=== PATIENT | male | born 1950 | race Caucasian/White ===

== ENCOUNTER → 2016-12-12 | Outpatient (CLI) | payer OTHER, BC ==
--- NOTE | 2016-12-12 13:55 | CPEKG ---
Heart Rate: 65 RR Interval: 923 P-R Interval: 148 QRSD Interval: 66 QT Interval: 388 QTC Interval: 404 P [place]: 77 QRS [place]: 48 T Wave [place]: 39 EKG Severity - NORMAL ECG - EKG Impression: SINUS RHYTHM EKG Impression: Poor R wave progression anteriorly, possible old anterior LA. Electronically Signed By: Zhen Costello 12-Dec-2016 16:59:34
== END ==
LOC: FCP 13:37
PROVIDERS: ATTEND Anesthesiology
DX: G35 Multiple sclerosis (principal)

== ENCOUNTER 2017-05-05 10:04 | Inpatient (IN) | payer OTHER, MEDICARE ==
--- NOTE | 2017-05-05 10:30 | EDPHY ---
H & P Stated Complaint: AMS Time Seen by Provider: 05/05/17 10:05 HPI/ROS: CHIEF COMPLAINT: Altered mental status HISTORY OF PRESENT ILLNESS: The patient presents to the ED with altered mental status. The patient has a history of multiple sclerosis. She has a history of multiple admissions this year for encephalopathy secondary to over-sedation and unintentional opioid overdose. The patient does report that she has been using these medications as well as trazodone and baclofen. At the patient's assisted living facility she reportedly was apneic and unresponsive. Paramedics gave the patient 2 mg of Narcan which resulted in immediate change in her mental status. Since that time she has been alert and conversant. The patient denies fever, cough or congestion. The patient denies dysuria. REVIEW OF SYSTEMS: A comprehensive 10 point review of systems is otherwise negative aside from elements mentioned in the history of present illness. Source: Patient, EMS - Personal History Current Tetanus/Diphtheria Vaccine: Unsure - Medical/Surgical History Hx Asthma: No Hx Chronic Respiratory Disease: No Hx Diabetes: No Hx Cardiac Disease: No Hx Renal Disease: No Hx Cirrhosis: No Hx Alcoholism: No Hx HIV/AIDS: No Hx Splenectomy or Spleen Trauma: No Other PMH: PMH: manic episodes, MS - Social History Smoking Status: Former smoker - Physical Exam Exam: General Appearance: Alert, no distress Eyes: Pupils equal and round no pallor or injection ENT, Mouth: Mucous membranes moist Respiratory: There are no retractions, lungs are clear to auscultation Cardiovascular: Regular rate and rhythm Gastrointestinal: Abdomen is soft and nontender, no masses, bowel sounds normal Neurological: Alert and oriented x4, somnolent, global weakness consistent with likely recurrent encephalopathy and her multiple sclerosis Skin: Warm and dry, no rashes Musculoskeletal: Neck is supple nontender Extremities: symmetrical, full range of motion Psychiatric: Patient is oriented X 3, there is no agitation Constitutional: Initial Vital Signs Temperature (C) 35.0 C L 05/05/17 10:09 Heart Rate 96 05/05/17 10:09 Respiratory Rate 16 05/05/17 10:09 Blood Pressure 119/97 H 05/05/17 10:09 O2 Sat (%) 97 05/05/17 10:09 O2 Delivery Mode Nasal Cannula O2 (L/minute) 2 Allergies/Adverse Reactions: No Known Allergies Allergy (Verified 03/14/17 01:57) Home Medications: Medication Instructions Recorded Baclofen [Baclofen 20 mg (*)] 40 mg PO 5XD 01/10/17 Acetaminophen [Tylenol 325mg (*)] 650 mg PO Q4HRS PRN #90 tab 03/17/17 Divalproex ER [Depakote ER 250 MG 250 mg PO BID #60 tab 03/17/17 (*)] Docusate Sodium [Colace 100 MG (*)] 100 mg PO BID #60 cap 03/17/17 Gabapentin [Neurontin 400 MG (*)] 400 mg PO TID 05/05/17 Tizanidine HCl [Zanaflex] 8 mg PO HS 05/05/17 clonAZEPAM [Klonopin] 0.5 mg PO HS PRN 05/05/17 oxyCODONE CR [Oxycontin] 15 mg PO TID 05/05/17 traZODone [traZODONE 100MG (*)] 300 mg PO HS PRN 05/05/17 Medical Decision Making ED Course/Re-evaluation: I reviewed the patient's past medical records. The patient has no evidence of significant respiratory distress. She has been placed on a engine monitor and given supplemental oxygen. The patient presents to the ED after a likely narcotic overdose which was responsive to IV Narcan given by the paramedics. The patient denies any suicidal or homicidal ideation. She does have a history of medication misadventure resulting in several hospitalizations for altered mental status. The patient is observed in the emergency department. We did have case management involved in her care. She is apparently unable to be transfer back to her assisted living facility secondary to her current level of acuity. The patient will require admission to the hospital. Consultation was made with the hospitalist service for admission. The patient will be admitted by Dr. Brad Pang. Differential Diagnosis: Differential diagnosis considered includes medication side effect, urinary tract infection, sepsis, metabolic abnormality - Data Points Laboratory Results: Laboratory Results 05/05/17 10:35 05/05/17 10:35 05/05/17 05/05/17 05/05/17 11:20 10:35 10:35 WBC 4.05 10^3/uL 10^3/uL (3.80-9.50) RBC 4.44 10^6/uL 10^6/uL (4.18-5.33) Hgb 13.1 g/dL g/dL (12.6-16.3) Hct 41.2 % % (38.0-47.0) MCV 92.8 fL fL (81.5-99.8) MCH 29.5 pg pg (27.9-34.1) MCHC 31.8 g/dL L g/dL (32.4-36.7) RDW 17.1 % H % (11.5-15.2) Plt Count 216 10^3/uL 10^3/uL (150-400) MPV 11.7 fL fL (8.7-11.7) Neut % (Auto) 63.7 % % (39.3-74.2) Lymph % (Auto) 16.8 % % (15.0-45.0) [place] % (Auto) 16.3 % H % (4.5-13.0) Eos % (Auto) 2.5 % % (0.6-7.6) Baso % (Auto) 0.2 % L % (0.3-1.7) Nucleat RBC Rel Count 0.0 % % (0.0-0.2) Absolute Neuts (auto) 2.58 10^3/uL 10^3/uL (1.70-6.50) Absolute Lymphs (auto) 0.68 10^3/uL L 10^3/uL (1.00-3.00) Absolute Monos (auto) 0.66 10^3/uL 10^3/uL (0.30-0.80) Absolute Eos (auto) 0.10 10^3/uL 10^3/uL (0.03-0.40) Absolute Basos (auto) 0.01 10^3/uL L 10^3/uL (0.02-0.10) Absolute Nucleated RBC 0.00 10^3/uL 10^3/uL (0-0.01) Immature Gran % 0.5 % % (0.0-1.1) Immature Gran # 0.02 10^3/uL 10^3/uL (0.00-0.10) Sodium 143 mEq/L mEq/L (134-144) Potassium 4.4 mEq/L mEq/L (3.5-5.2) Chloride 103 mEq/L mEq/L (97-110) Carbon Dioxide 28 mEq/l mEq/l (22-31) Anion Gap 12 mEq/L mEq/L (8-16) BUN 20 mg/dL mg/dL (7-23) Creatinine 0.6 mg/dL mg/dL (0.6-1.0) Estimated GFR > 60 Glucose 91 mg/dL mg/dL (70-100) Calcium 9.9 mg/dL mg/dL (8.5-10.4) Urine Color YELLOW Urine Appearance HAZY Urine pH 5.0 (5.0-7.5) Ur Specific [place] 1.027 (1.002-1.030) Urine Protein NEGATIVE (NEGATIVE) Urine Ketones 1+ H (NEGATIVE) Urine Blood NEGATIVE (NEGATIVE) Urine Nitrate NEGATIVE (NEGATIVE) Urine Bilirubin NEGATIVE (NEGATIVE) Urine Urobilinogen NEGATIVE EU EU (0.2-1.0) Ur Leukocyte Esterase 1+ H (NEGATIVE) Urine RBC 1-3 /hpf /hpf (0-3) Urine WBC 15-25 /hpf H /hpf (0-3) Ur Epithelial Cells TRACE /lpf /lpf (NONE-1+) Urine Bacteria TRACE /hpf H /hpf (NONE SEEN) Hyaline Casts 5-15 /lpf /lpf (0-1) Urine Mucus 1+ /lpf /lpf (NONE-1+) Urine Glucose NEGATIVE (NEGATIVE) Medications Given: Discontinued Medications Sodium Chloride (Ns) 1,000 mls @ 0 mls/hr IV ONCE ONE PRN Reason: Wide Open Stop: 05/05/17 11:02 Last Admin: 05/05/17 11:12 Dose: 1,000 mls Departure - Departure Disposition: [facility] Inpatient Acute Clinical Impression: Altered mental status, Weakness, Multiple sclerosis Condition: Fair Referrals: Syd Marquez MD [Primary Care Provider] - As per Instructions
[2017-05-05 10:54] LABS: % IMMATURE GRANULYOCYTES 0.5 % (0.0-1.1); ABSOLUTE IMMATURE GRANULOCYTES 0.02 10^3/uL (0.00-0.10); ADD DIFF? NO; ADD MORPH? NO; ADD SCAN? NO; ATYPICAL LYMPHOCYTE FLAG 0 (0-99); FRAGMENT RBC FLAG 0 (0-99); HEMATOCRIT 41.2 % (38.0-47.0); HEMOGLOBIN 13.1 g/dL (12.6-16.3); LEFT SHIFT FLG 0 (0-99); LIPEMIA HEMOLYSIS FLAG 80 (0-99); MEAN CELL HEMOGLOBIN 29.5 pg (27.9-34.1); MEAN CELL HEMOGLOBIN CONCENTR. 31.8 g/dL (32.4-36.7); MEAN CELL VOLUME 92.8 fL (81.5-99.8); MEAN PLATELET VOLUME 11.7 fL (8.7-11.7); PLATELET CLUMPS FLAG 10 (0-99); PLATELET COUNT 216 10^3/uL (150-400); RED BLOOD CELL COUNT 4.44 10^6/uL (4.18-5.33); RED CELL DISTRIBUTION WIDTH 17.1 % (11.5-15.2)
[2017-05-05] MEDS ORDERED: NS 1,000 ML IV ONE (11:01)
[2017-05-05 11:15] LABS: ANION GAP 12 mEq/L (8-16); CALCIUM 9.9 mg/dL (8.5-10.4); CARBON DIOXIDE 28 mEq/l (22-31); CHLORIDE 103 mEq/L (97-110); CREATININE 0.6 mg/dL (0.6-1.0); GLOMERULAR FILTRATION RATE > 60; GLUCOSE 91 mg/dL (70-100); POTASSIUM 4.4 mEq/L (3.5-5.2); SODIUM 143 mEq/L (134-144)
[2017-05-05 11:44] LABS: COLOR YELLOW; LEUKOCYTE ESTERASE,URINE 1+ (NEGATIVE); NITRITE,URINE NEGATIVE (NEGATIVE)
[2017-05-05 11:55] LABS: BACTERIA TRACE /hpf (NONE SEEN); MUCUS 1+ /lpf (NONE-1+); WBC,URINE 15-25 /hpf (0-3)
[2017-05-05] MEDS ORDERED: ACETAMINOPHEN 325 MG TAB PO PRN (13:51)
[2017-05-05] MEDS ORDERED: ONDANSETRON 4 MG/2 ML VIAL IVP PRN (13:57)
[2017-05-05 14:20] LABS: ALBUMIN 3.9 g/dL (3.5-5.0); BILIRUBIN,TOTAL 0.7 mg/dL (0.1-1.4); BILIRUBIN-CONJUGATED 0.5 mg/dL (0.0-0.5); BILIRUBIN-UNCONJUGATED 0.2 mg/dL (0.0-1.1); TOTAL PROTEIN 6.6 g/dL (6.3-8.2)
--- NOTE | 2017-05-05 14:38 | GHP ---
[f rep st] HISTORY AND PHYSICAL DATE OF ADMISSION: 05/05/2017 CHIEF COMPLAINT: Altered mental status. HISTORY OF PRESENT ILLNESS: This is a 66-year-old female with a history of multiple sclerosis who r esides at the [facility] who presented to the emergency department today with altered mental status. Upon review of the medical record, it appears that she was admitted for the same complaint on March 14 of this year and ultimately discharged on 03/17/2017 with a diagnosis of acute encephalopathy t hat was thought to be secondary to over sedation from unintentional opioid overdose. During the time of my exam, the patient is confused, making a very unreliable historian. The histor y was obtained via discussions with case preparer and liner, Ly, in the Emergency Department, as well as re view of the emergency department notes. Apparently, the patient does not have access to her home me dications. Her life partner dispenses her meds on a daily basis. Reportedly she was recently treat ed for a urinary tract infection. Over the past few days, she has had increasing confusion and amanda tion. She has not been taking her medications due to somnolence since yesterday. When EMS arrived at her home, she was found to be apneic and unresponsive. She was given 2 mg of Na rcan which improved her mental status. The patient denies overdosing on her medications when I ask her. Once again she seems unreliable. PAST MEDICAL HISTORY: 1. Multiple sclerosis. 2. Chronic pain. 3. Previous medication overdose. PAST SURGICAL HISTORY: Unobtainable. HOME MEDICATIONS: Acetaminophen, baclofen, Colace, OxyContin, trazodone. ALLERGIES: No known drug allergies. SOCIAL HISTORY: The patient resides at [facility]. The patient is a former smoker. FAMILY HISTORY: Unobtainable. REVIEW OF SYSTEMS: Comprehensive 10-point review of systems was attempted but unobtainable due to t he patient's altered mental status. PHYSICAL EXAMINATION: VITAL SIGNS: Blood pressure 117/72, pulse of 82, respiratory rate 16, O2 sat uration 96% on 2 L. Temperature afebrile. GENERAL: Chronically ill-appearing, lethargic. HEAD: Normocephalic, atraumatic. Eyes are PERRLA. Sclerae anicteric. MOUTH: Moist mucous membranes. N ELIZABETH: Supple. No lymphadenopathy. CARDIOVASCULAR: S1, S2. No JVD. No lower extremity edema. PU LMONARY: Lungs are clear. No wheezes, rales, or rhonchi. ABDOMEN: Soft, nontender, and nondisten ded. No guarding or rebound tenderness. Normoactive bowel sounds. EXTREMITIES: No clubbing or cy anosis. NEURO: Cranial nerves 2-12 appear to be intact. She is moving all extremities but does no t really follow commands. SKIN: Clear. No rashes. DIAGNOSTICS: WBC is 4, hemoglobin 13, hematocrit 41, platelets 216; sodium 143, potassium 4.4, chlo ride 103, CO2 28, BUN 20, creatinine 0.6, glucose 91. Urine is 1+ ketones, 1+ leukocyte esterase, 1 5-25 WBCs. ASSESSMENT/PLAN: 1. This is a 66-year-old female with a history of multiple sclerosis and previous hospitalization f or suspected overdose presenting with somnolence and acute encephalopathy of unclear etiology. Diff erential diagnosis includes accidental overdose versus urinary tract infection versus worsening mult iple sclerosis versus failure to thrive and not eating. 2. Plan: The patient will be admitted to the hospital where I will ask her neurologist to see her. Will hold sedating medications and see if this helps clear her mentation. 3. Mild pyuria without fever or leukocytosis. 4. Plan: Will send a urine culture and start ceftriaxone for a possible urinary tract infection. DISPOSITION: At this juncture, the patient will be admitted to the hospital under inpatient status. It appears that she has not been doing well in her current living situation. She had recently bee n discharged from the longterm facility following her last hospitalization in March. The pat ient is at a high risk for venous thromboembolism and will start low molecular weight heparin for DV T prophylaxis. /[id number]/MODL
[2017-05-05] MEDS: GABAPENTIN 400 MG CAP PO SCH ×2 (15:31→21:43)
[2017-05-05] MEDS: BACLOFEN 20 MG TAB PO SCH ×2 (17:22→20:31)
[2017-05-05] MEDS: oxyCODONE CR 15 MG TAB PO SCH ×2 (17:22→20:31)
[2017-05-05] MEDS: DOCUSATE SODIUM 100 MG CAP PO SCH (20:31)
[2017-05-05] MEDS: DIVALPROEX ER 250 MG TAB PO SCH (20:31)
[2017-05-06] MEDS ORDERED: KETOROLAC 15 MG/1 ML SDV ONE (02:01)
[2017-05-06] MEDS: KETOROLAC 15 MG/1 ML SDV IVP SCH ×4 (02:04→20:34)
[2017-05-06 10:22] LABS: ANION GAP 2 mEq/L (8-16); CALCIUM 8.6 mg/dL (8.5-10.4); CARBON DIOXIDE 31 mEq/l (22-31); CHLORIDE 106 mEq/L (97-110); CREATININE 0.6 mg/dL (0.6-1.0); GLOMERULAR FILTRATION RATE > 60; GLUCOSE 75 mg/dL (70-100); POTASSIUM 4.6 mEq/L (3.5-5.2); SODIUM 139 mEq/L (134-144)
[2017-05-06] MEDS: DIVALPROEX ER 250 MG TAB PO SCH ×2 (11:28→20:21)
[2017-05-06] MEDS: ENOXAPARIN 40 MG/0.4 ML SYR SC SCH (11:28)
[2017-05-06] MEDS: DOCUSATE SODIUM 100 MG CAP PO SCH ×2 (11:28→20:34)
[2017-05-06] MEDS: BACLOFEN 20 MG TAB PO SCH ×5 (11:28→22:03)
[2017-05-06] MEDS: GABAPENTIN 400 MG CAP PO SCH ×3 (11:29→22:04)
[2017-05-06] MEDS: oxyCODONE CR 15 MG TAB PO SCH ×3 (11:29→22:04)
--- NOTE | 2017-05-06 11:54 | GCON ---
[f rep st] CONSULTATION The patient is here in the hospital for feelings of lightheadedness, lethargy, and dizziness and tra nsferred from the [facility] via ambulance yesterday afternoon. I have been consulted to see her rega rding the diagnosis of multiple sclerosis and whether acute symptoms might be related to that. The history is obtained from the patient directly. Current medical records are unavailable due to the s ystem down time. She tells me that she was diagnosed around 1987 when she had weakness and dizzines s and has been through the initial first-line multiple sclerosis drugs and eventually was on Tysabri and had been on methotrexate prior to that and more recently has completed treatment with Lemtrada. She is followed at the [facility] after moving here from the . area about 6 month s ago. She cannot recall the name of the fellow at the [facility] but is aware of the team of physicians there. She predominantly deals with chronic pain in the legs, and this is a res ult of spasticity. She is followed in the [facility] for the pain management for which she say s she takes OxyContin 15 mg 3 times a day. Her baclofen dosing is reportedly 40 mg 5 times a day. Because of her lethargy, Dr. Pang decreased those doses by 50% on the baclofen and by 1/3 on the Ox yContin until she became more alert and then have an opportunity to see if she would recover back to her baseline. She is complaining of having pain and wants more of her medication again. The relat juliet hypotension has resolved, and her lethargy is much better. She is probably getting toward her b aseline. She denies any other new symptoms such as focal numbness or weakness. REVIEW OF SYSTEMS: Unremarkable. FAMILY HISTORY: Unremarkable except for a distant relative with multiple sclerosis. 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 Her degree of disability has led to living in an [facility] living facility. She spends a fair amount of time in a wheelchair but can do some walking with hiking poles about 20 or 30 feet. She does not smoke cigarettes. Stopped consuming any significant alcohol 30 years ago or more. No drug abuse. She has completed treatment with Lemtrada for immuno suppression. She is interested in trying Ampyra but is not on that drug and has not had discussions yet with her doctors at [facility]. She is on the baclofen as outlined and OxyContin . She is well developed, lying in the bed in no acute distress. Pupils 3 mm and reactive. Extraocula r movements are intact. Normal facial sensation and strength. Motor exam reveals normal muscle bul k and tone. In the upper extremities, there is some increased tone. In the lower extremities, ther e is spasticity. All of her strength is in the 4/5 range or slightly less depending on effort and p roximal being weaker than distal. Sensation is relatively preserved. Reflexes are brisk in the low er extremities. IMPRESSION: The patient has chronic progressive multiple sclerosis and has failed many different im munomodulatory treatments and has completed treatment with Lemtrada and probably is not having a mul tiple sclerosis acute exacerbation at this time but probably overmedicated with side effects causing hypotension and lethargy. She unfortunately has chronic pain with spasticity and that requires pot entially sedating drugs with risk of excessive sedation and the complications of that. We will try to get her back on a dose that she can tolerate to maintain control of symptoms, but it will certain ly be a challenge to maintain that difficult balance. She asked if I could see her in [place] in e future, and I told her I would be happy to work with her and my physician orthodontic assistant if she would l manda to be seen here rather than traveling to [place] for her multiple sclerosis care. She understand s that we would not be involved in prescribing narcotics, but that would be done through a pain clin ic. We would need to have all the records sent from the [facility] if we do assume her care after discharge. She probably is not a candidate for inpatient rehab but can be assessed by ph ysical and occupational therapy. Today's total unit time greater than 50% [id number] was 60 minutes. Copy requested to: [facility] /[id number]/MODL
[2017-05-06] MEDS ORDERED: traZODone 100 MG TAB PO PRN (13:14)
[2017-05-06] MEDS ORDERED: NON-FORMULARY NEW DRUG (Clonazepam [Klonopin] 0.5 MG) PO PRN (13:14)
[2017-05-06 13:18] LABS: % IMMATURE GRANULYOCYTES 0.2 % (0.0-1.1); ABSOLUTE IMMATURE GRANULOCYTES 0.01 10^3/uL (0.00-0.10); ADD DIFF? NO; ADD MORPH? NO; ADD SCAN? NO; ATYPICAL LYMPHOCYTE FLAG 10 (0-99); FRAGMENT RBC FLAG 20 (0-99); HEMATOCRIT 35.1 % (38.0-47.0); HEMOGLOBIN 11.3 g/dL (12.6-16.3); LEFT SHIFT FLG 0 (0-99); LIPEMIA HEMOLYSIS FLAG 80 (0-99); MEAN CELL HEMOGLOBIN 30.1 pg (27.9-34.1); MEAN CELL HEMOGLOBIN CONCENTR. 32.2 g/dL (32.4-36.7); MEAN CELL VOLUME 93.4 fL (81.5-99.8); MEAN PLATELET VOLUME 11.5 fL (8.7-11.7); PLATELET CLUMPS FLAG 10 (0-99); PLATELET COUNT 214 10^3/uL (150-400); RED BLOOD CELL COUNT 3.76 10^6/uL (4.18-5.33); RED CELL DISTRIBUTION WIDTH 17.2 % (11.5-15.2)
[2017-05-06] MEDS ORDERED: clonazePAM 0.5 MG TAB PO PRN (13:22)
--- NOTE | 2017-05-06 13:22 | HOSPPROG ---
Hospitalist Progress Note Assessment/Plan: 66 y/o female with h/o progressive MS presenting with #acute encephalopathy (resolved) with h/o similar presentation back in 03/2017 though to be due to oversedation from medications -ddx: overmedication which the patient denies vs uti (urine culture negative to date) vs other plan: -neuro consult was reviewed and appreciated -will resume home dose of oxycontin/baclofen/trazodone and monitor effect -will cont to hold zanaflex -PT/OT eval -dc back to [facility] if stable or may need rehab #possible uti plan: -cont ctx for now pending culture #H/o chronic pain/opiate dependence plan: as per above dispo: continue inpatient care lovenox for dvt -p Subjective: reports severe total body pain. requesting that home dose of baclofen and oxycontin be resumed. denies fever or chills. no other acute complaints Objective: Vital Signs Temp Pulse Resp BP Pulse Ox 36.9 C 78 18 140/89 H 95 05/06/17 11:56 05/06/17 11:56 05/06/17 11:56 05/06/17 11:56 05/06/17 11:56 Laboratory Results 05/06/17 07:25 05/05/17 05/06/17 05/07/17 05:59 05:59 05:59 Intake Total 700 Output Total 1200 Balance -500 - Physical Exam Constitutional: no apparent distress, chronically ill appearing Cardiovascular: regular rate and rhythym, no murmur, rub, or gallop Respiratory: no respiratory distress, no rales or rhonchi, clear to auscultation Gastrointestinal: normoactive bowel sounds, soft, non-tender abdomen, no palpable masses, No guarding, No rebound Skin: no rashes or abrasions, no fluctuance, no induration ICD10 Worksheet Patient Problems: Problems Problem Status Onset Altered mental status Acute Weakness Acute Multiple sclerosis Acute Fall Acute
[2017-05-06] MEDS: traZODone 100 MG TAB PO SCH (22:04)
[2017-05-07] MEDS: KETOROLAC 15 MG/1 ML SDV IVP SCH ×4 (00:22→18:37)
[2017-05-07] MEDS: BACLOFEN 20 MG TAB PO SCH ×5 (05:47→21:26)
--- NOTE | 2017-05-07 09:24 | NEUROPROG ---
Assessment: Multiple sclerosis stable with mild worsening of symptoms likely related to meds or UTI or some combination. Pt feels she could not have overdosed on the meds, but just no sure. Agree with trying for inpatient rehab if a candidate. Total unit time 25 minutes. Subjective: Pt reports feeling back to her baseline except a little weakness in general. The lethargy has resolved. Objective: Vital Signs Temp Pulse Resp BP Pulse Ox 36.8 C 67 14 126/69 H 91 L 05/07/17 07:52 05/07/17 07:52 05/07/17 07:52 05/07/17 07:52 05/07/17 07:52 Laboratory Results 05/06/17 07:25 05/06/17 07:25 05/06/17 05/07/17 05/08/17 05:59 05:59 05:59 Intake Total 700 450 Output Total 1200 300 Balance -500 150 Stable Allergies/Adverse Reactions: No Known Allergies Allergy (Verified 03/14/17 01:57)
[2017-05-07] MEDS: GABAPENTIN 400 MG CAP PO SCH ×3 (10:10→21:26)
[2017-05-07] MEDS: oxyCODONE CR 15 MG TAB PO SCH ×3 (10:10→21:26)
[2017-05-07] MEDS: DIVALPROEX ER 250 MG TAB PO SCH ×2 (10:10→21:26)
[2017-05-07] MEDS: DOCUSATE SODIUM 100 MG CAP PO SCH ×2 (10:10→21:58)
[2017-05-07] MEDS: ENOXAPARIN 40 MG/0.4 ML SYR SC SCH (10:14)
[2017-05-07 11:12] VITALS: RESP 16
[2017-05-07] MEDS ORDERED: POLYETHYLENE GLYCOL 3350 17 GM PKT PO PRN (13:12)
[2017-05-07] MEDS ORDERED: BISACODYL 10 MG SUPP PR PRN (13:12)
[2017-05-07] MEDS ORDERED: MAGNESIUM HYDROXIDE 30 ML UDCUP PO PRN (13:12)
[2017-05-07] MEDS ORDERED: LIDOCAINE 5% 1 EA PATCH TD SCH ×2 (14:00→21:00)
--- NOTE | 2017-05-07 14:54 | HOSPPROG ---
Hospitalist Progress Note Assessment/Plan: 66 y/o female with h/o progressive MS presenting with weakness. This is my first encounter, chart reviewed. #acute encephalopathy (resolved) with h/o similar presentation back in 03/2017 though could be due to oversedation from medications -ddx: overmedication which the patient denies vs uti (urine culture negative to date) vs other plan: -neuro consult was reviewed and appreciated -will resume home dose of oxycontin/baclofen/trazodone and monitor effect -will cont to hold zanaflex -PT/OT eval #MS: weakness consider inpt rehab consult ordered, D/W Summer #possible uti cx negative plan: DC CTX #Back pain add lidoderm patch #H/o chronic pain/opiate dependence plan: as per above dispo: continue inpatient care lovenox for dvt -p Subjective: Up in wheelchair. Feels weak. Eating breakfast. Objective: Vital Signs Temp Pulse Resp BP Pulse Ox 36.4 C 86 16 121/98 H 94 05/07/17 11:10 05/07/17 11:10 05/07/17 11:10 05/07/17 11:10 05/07/17 11:10 Laboratory Results 05/06/17 07:25 05/06/17 07:25 05/06/17 05/07/17 05/08/17 05:59 05:59 05:59 Intake Total 700 450 Output Total 1200 300 Balance -500 150 - Physical Exam Constitutional: appears nourished, chronically ill appearing, uncomfortable Eyes: PERRL, anicteric sclera, EOMI Ears, Nose, Mouth, Throat: moist mucous membranes, hearing normal, ears appear normal Cardiovascular: No JVD, No tachycardia, No edema Respiratory: no respiratory distress, no rales or rhonchi, reduced air movement Gastrointestinal: No tenderness, No ascites, No guarding Skin: warm, normal color, No erythema Musculoskeletal: no joint effusions, muscular tenderness, generalized weakness Neurologic: AAOx3 Psychiatric: not anxious, not encephalopathic, thought process linear ICD10 Worksheet Patient Problems: Problems Problem Status Onset Altered mental status Acute Weakness Acute Multiple sclerosis Acute Fall Acute
[2017-05-07] MEDS: traZODone 100 MG TAB PO SCH (21:25)
[2017-05-07] MEDS: SENNOSIDES/DOCUSATE SODIUM TAB PO SCH (21:26)
[2017-05-08] MEDS: KETOROLAC 15 MG/1 ML SDV IVP SCH ×3 (00:03→11:31)
[2017-05-08] MEDS: BACLOFEN 20 MG TAB PO SCH ×3 (05:46→13:07)
[2017-05-08 08:59] VITALS: BP 99/54; PULSE 80; TEMP 98.5; O2SAT 94
[2017-05-08] MEDS ORDERED: PATCH REMOVAL 1 EA PATCH TD SCH (09:00)
[2017-05-08] MEDS: ENOXAPARIN 40 MG/0.4 ML SYR SC SCH (09:22)
[2017-05-08] MEDS: DOCUSATE SODIUM 100 MG CAP PO SCH (09:22)
[2017-05-08] MEDS: oxyCODONE CR 15 MG TAB PO SCH (09:22)
[2017-05-08] MEDS: GABAPENTIN 400 MG CAP PO SCH (09:22)
[2017-05-08] MEDS: SENNOSIDES/DOCUSATE SODIUM TAB PO SCH (09:23)
[2017-05-08] MEDS: DIVALPROEX ER 250 MG TAB PO SCH (09:24)
[2017-05-08] MEDS: LACTULOSE 20 GM/30 ML UDCUP PO PRN ×2 (09:42→13:07)
--- NOTE | 2017-05-08 12:13 | PDIAF ---
- Diagnosis Diagnosis: weakness Code Status: Full Code - Medication Management Discharge Medications: Medications to Continue on Transfer Baclofen [Baclofen 20 mg (*)] 40 mg PO 5XD 01/10/17 [Last Taken 03/13/17] Acetaminophen [Tylenol 325mg (*)] 650 mg PO Q4HRS PRN #90 tab 03/17/17 [Last Taken Unknown] Divalproex ER [Depakote ER 250 MG (*)] 250 mg PO BID #60 tab 03/17/17 [Last Taken Unknown] Docusate Sodium [Colace 100 MG (*)] 100 mg PO BID #60 cap 03/17/17 [Last Taken Unknown] Gabapentin [Neurontin 400 MG (*)] 400 mg PO TID 05/05/17 [Last Taken Unknown] Tizanidine HCl [Zanaflex] 8 mg PO HS 05/05/17 [Last Taken Unknown] clonAZEPAM [Klonopin] 0.5 mg PO HS PRN 05/05/17 [Last Taken Unknown] oxyCODONE CR [Oxycontin] 15 mg PO TID 05/05/17 [Last Taken Unknown] traZODone [traZODONE 100MG (*)] 100 mg PO HS PRN 05/05/17 [Last Taken Unknown] traZODone [traZODONE 100MG (*)] 200 mg PO HS 05/05/17 [Last Taken Unknown] Enoxaparin [Lovenox 40 MG (*)] 40 mg SC DAILY syr 05/08/17 [Last Taken Unknown] Lidocaine 5% [Lidoderm 5% Patch (*)] 1 ea TD HS patch 05/08/17 [Last Taken Unknown] Patch Removal 1 ea TD DAILY patch 05/08/17 [Last Taken Unknown] Polyethylene Glycol 3350 [Miralax 17 gm (*)] 17 gm PO DAILY PRN #0 pkt 05/08/17 [Last Taken Unknown] Sennosides/Docusate Sodium [Senokot-S] 1 - 2 tab PO BID tab 05/08/17 [Last Taken Unknown] Discharge Medications: Refer to the Discharge Home Medication list for PRN reason. PICC Care - Routine: N/A - Orders Services needed: Registered Nurse, Physical Therapy, Occupational Therapy Diet Recommendation: no restrictions on diet - Follow Up Care Current Providers and Referrals: Syd Marquez MD [Primary Care Provider] - As per Instructions
--- NOTE | 2017-05-08 15:06 | GDS ---
[f rep st] DISCHARGE SUMMARY DISCHARGE DIAGNOSES: 1. Weakness. 2. Acute encephalopathy. 3. Multiple sclerosis. 4. Pyuria. 5. Back pain. 6. Chronic pain with opioid dependency. CONSULTATIONS: Dr. Leon of Neurology. PHYSICAL EXAM: GENERAL: The patient is alert. VITAL SIGNS: Afebrile at 36.9, pulse is 80, respir atory rate 16, blood pressure is 99/54. She is saturating 94% on 2 liters. I have seen and evaluat ed the patient on the day of discharge. HOSPITAL COURSE: The patient is a 66-year-old female who presented to the hospital with complaints of altered mental status. She was evaluated and diagnosed with: 1. Acute encephalopathy. The etiology of this is potential over medication. Her medications have b een adjusted and her mentation has returned to baseline. She did receive a consultation from Michael wellington during this hospital course with no recommended further evaluation. 2. Multiple sclerosis. The patient is suffering from acute weakness. She will require rehabilitat ion. 3. Pyuria. Urine culture was negative. The patient was treated with Rocephin prophylactically whi paulette awaiting urine culture results. 4. Back pain with added Lidoderm patch. 5. Chronic pain with opioid dependency. She has been reinitiated on her previously prescribed medi cations and is tolerating them well. It is potential that the patient may have taken more medicatio ns than prescribed in the outpatient setting unintentionally causing her to have acute altered menta tion. DISPOSITION: The patient will be discharged to inpatient rehab for further strengthening and condit ioning. There are no pending studies. DISCHARGE MEDICATIONS: Please refer to EMR form. I have not adjusted the patient's previously pres cribed home medications to the best of my knowledge. FOLLOWUP: Followup will be with her primary care physician, Dr. Syd Marquez. I spent greater than 35 minutes in the care, coordination, and management of this patient's disposit ion and coordination with Case Management. /[id number]/MODL
== END 2017-05-08 14:33 | DRG 92 ==
LOC: EDUNIT# → OBSVTOIN 13:54 → F3N 14:04
PROVIDERS: ADMIT Family Medicine; ATTEND Family Medicine
DX: G92 Toxic encephalopathy (principal); T40.601A Poisoning by unspecified narcotics, accidental (unintentional), initial encounter; G35 Multiple sclerosis; G89.29 Other chronic pain; F11.20 Opioid dependence, uncomplicated; Z87.891 Personal history of nicotine dependence; Z87.440 Personal history of urinary (tract) infections
CPT/HCPCS: 97110-GO; 97116-GP; 97162-GP; 97166-GO; 97530-GO; 97535-GO; G8981-GP-CK; G8982-GP-CI; G8987-GO-CK; G8988-GO-CJ; J0696; J1650; J1885

== ENCOUNTER 2017-05-08 10:31 | Inpatient (IN) | payer OTHER, MEDICARE ==
--- NOTE | 2017-05-08 18:22 | GHP ---
[f rep st] HISTORY AND PHYSICAL POST ADMISSION PHYSICIAN EVALUATION AND REHABILITATION TREATMENT PLAN DATE OF ADMISSION: 05/08/2017 DATE OF EVALUATION: 05/08/2017 TIME OF EVALUATION: 1455. REFERRING FACILITY: [facility]. REFERRING PHYSICIAN: Brad Pang DO IMPAIRMENT GROUP: 16. DATE OF ONSET: 05/06/2017 REHABILITATION DIAGNOSIS: Weakness and debility. ETIOLOGIC DIAGNOSIS: Debility (non-cardiac, non-pulmonary) HISTORY OF PRESENT ILLNESS: This patient is a 66-year-old woman with a history of chronic progressive multiple sclerosis since 1987. She came to [facility] from her assisted living facility on 05/05/2017 with altered mental status. She reports that she had recently been treated for a urinary tract infection and had symptoms with dysuria and frequency, and that she had gotten weaker over a period of days. It was also thought possible that she was over-sedated from unintentional overdose of sedating medications. Her sedating medications were initially reduced, and she had some improvement. Her oxycodone, baclofen, and trazodone doses were initially reduced; subsequently, after neurologic consult, they were resumed at her home doses on 05/06/2017. She was treated with ceftriaxone for a possible resistant urinary tract infection. Urinalysis on the day of admission was consistent with urinary tract infection; however, culture grew no organisms, so antibiotics were discontinued. She was evaluated by physical therapy and occupational therapy and was appropriate for transfer to inpatient rehabilitation. STUDIES AND LABS IN THE HOSPITAL: CBC was overall within normal limits. She did get slight anemia during her stay, possibly due to hydration, and on May 06 her hemoglobin was 11.3 and hematocrit was 35.1. She had an elevated RDW. Serum chemistry revealed normal renal function, liver function, and electrolytes on 05/05 and 05/06. Urinalysis had 1+ ketones, 1+ leukocyte esterase,15-20white blood cells, and trace bacteria. It was somewhat concentrated with a specific gravity of 1.027. Toxicology screen in the serum revealed a valproic acid level of 31.6, which is subtherapeutic for seizures, but she takes it for mood stabilization. PRECAUTIONS: She is a fall risk. ACTIVE COMORBIDITIES: She has no active tier 1, tier 2, or tier 3 comorbidities. PAST MEDICAL HISTORY: 1. Multiple sclerosis. 2. Degenerative joint disease. 3. Chronic pain and chronic opiate use. 4. Prior inadvertent medication overdoses. ALLERGIES: No known drug allergies. PRE-HOSPITAL MEDICATIONS: 1. Baclofen 40 mg p.o. 5 times a day. 2. Acetaminophen 650 mg q.4 hours p.r.n. 3. Divalproex ER 250 mg p.o. twice daily. 4. Docusate 100 mg p.o. b.i.d. 5. Gabapentin 400 mg p.o. t.i.d. 6. Tizanidine 8 mg p.o. q.h.s. 7. Clonazepam 0.5 mg p.o. q.h.s. p.r.n. 8. Oxycodone continuous release 15 mg p.o. t.i.d. 9. Trazodone 200 mg q.h.s. and 100 mg q.h.s. p.r.n. 10. Polyethylene glycol 17 g p.o. daily. 11. Senna/docusate 1-2 tabs p.o. b.i.d. ADMISSION MEDICATIONS: The same as pre-hospital medications with the addition of lidocaine patch q.h.s. to her left buttock and enoxaparin 40 mg subcutaneous daily. FAMILY HISTORY: Noncontributory. PSYCHOSOCIAL HISTORY: She is a nonsmoker and nondrinker. She lives in assisted living facility. 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 She has a life partner who is also in [place] but does not live at the assisted living. REVIEW OF SYSTEMS: She reports knee pain and reports that she has an appointment on May 10 at 10 a.m. for an injection with orthopedist, , in the right knee. She has buttock/low back pain which is improved with the lidocaine patch which was initiated in the hospital. She has weakness and reports that her normal functional status includes independence with transfers and dressing and ability to prepare simple meals in her assisted living apartment. She needed assistance with bathing. She was able to ambulate short distances using trekking poles. She denies cough or dyspnea. She denies chest pain and palpitations. She has constipation, but this was relieved yesterday with laxatives. She denies nausea, vomiting, or diarrhea. She denies dysuria and urinary frequency at this time. She denies fevers or chills. On chart review, she has had weight gain of greater than 6 kg since March, and otherwise a 10-point review of systems is negative. PHYSICAL EXAMINATION: VITALS. This morning at [facility], blood pressure was 99/54, heart rate was 80, respiratory rate was 16, oxygen saturation was 94% on room air. Temperature was 36.9 degrees centigrade. Her weight was 59 kg for a body mass index of 22.3. GENERAL: This is a well- nourished, well-developed woman sitting in a wheelchair with a somewhat flexed posture, cooperative, and in no acute distress. HEENT: Extraocular movements are intact. Pupils are 3 mm, equal, round, and reactive to light. Mucous membranes are moist. Dentition is in good condition. NECK: Supple. HEART: Regular rate and rhythm with no murmurs, rubs, or gallops. LUNGS: Clear to auscultation bilaterally. ABDOMEN: Soft, nontender, and nondistended with normoactive bowel sounds and no hepatosplenomegaly. EXTREMITIES: No cyanosis, clubbing, or edema. Radial and dorsalis pedis pulses are 2+ bilaterally. NEUROLOGIC: Alert and oriented x3. Cranial nerves 2-12 are grossly intact. Her left upper extremity strength is 4/5 to 4+/5, including handgrip, biceps and triceps. Her shoulder shrug is 5/5. Her left lower extremity strength is 4 /5 at the hip flexors and 3/5 at the, hamstrings and approximately 4/5 at the quadriceps. Her strength on the right side is overall 4+/5. Sensation is intact to light touch. Deep tendon reflexes are 2+ bilaterally at the biceps, but hypoactive at the patella and Achilles tendons. Gait and stance were not tested. CURRENT LEVEL OF FUNCTION per the pre-admission screen. Regarding diet, feeding , and swallowing, she was on a regular diet. For grooming, she required set up. For bathing, she required minimal assistance. For showering and minimal assistance for transfer. For dressing of the upper body, she required maximal assistance, and lower body required total assistance to hike her pants. Regarding toileting, she required total assistance for clothing management. Regarding bladder, she was noted to have a Van catheter. Regarding bowels, she was continent. Regarding bed mobility, she required contact guard-to- minimal assistance. For transfers, she required minimal assistance using a front-wheeled walker for balance. She required minimal assistance for standing and [id number] assist in sitting. Endurance was fair. She was able to ambulate 15 feet x3 with minimal assist of 2. She required seated rests. She was noted to have increased tone in the left lower extremity and that the left lower extremity was weaker than the right. Regarding cognition, she was noted to have impaired insight, judgment, safety awareness, sequencing, and organization, and she was noted to fatigue easily. IMPRESSION: This patient is a 66-year-old woman who has had 3 hospitalizations in the past 4 months for episodes of weakness. The current hospitalization may have been related to a urinary tract infection. The other hospitalizations were due to unintentional overdoses of sedating medications. She has been returned to her home doses of her medications, including a very high baclofen dose, which is well above the recommended maximum dose. Other sedating medications are divalproex, gabapentin, tizanidine, clonazepam, oxycodone, and trazodone. She insists that she has not overdosed on these medications. In inpatient rehabilitation, she can be observed for her alertness while she is taking medications as prescribed, and will consider making adjustments. She arrives quite debilitated relative to her usual state at her assisted living, and will benefit from physical and occupational therapy to optimize mobility and activities of daily living, and speech and language pathology regarding cognition. She will have nursing care for fall risk, bowel and bladder, skin integrity, and medication administration. She will have oversight by a physician regarding her multiple medications and possible adverse effects or interactions, for pain management and for deep venous thrombosis prophylaxis. Her goal is to return to her assisted living with supportive services. For a safe discharge, she will need to have independence with bed mobility, transfers , grooming, and dressing; she will need to achieve modified independence for toileting; she will likely continue to require [id number] guard assist for bathing. She will need to ambulate 20-40 feet continuously with trekking poles, and she will need to be independent with transfers to and from and use of the wheelchair. She will receive therapy with physical therapy, occupational therapy, and speech and language pathology for 1 hour per day on 5-7 days per week. Her expected duration of stay is 7-10 days. It is anticipated that, upon discharge, she will continue to benefit from home health services, including occupational therapy, and physical therapy, as well as a multiple sclerosis support group. ASSESSMENT AND PLAN: 1. Debility in a patient with chronic progressive multiple sclerosis with proximal cause being either urinary tract infection or unintentional overdose on sedating medications. Physical and occupational therapy to optimize mobility and activities of daily living. 2. Cognitive impairment related to multiple sclerosis. Assessment and treatment per speech and language pathology. 3. Spasticity and chronic pain. Will continue baclofen, gabapentin, tizanidine , and the lidocaine patch. She will be observed for over-sedation and for adequacy of pain control. She has an appointment with orthopedic surgeon, for a right knee injection on May 10, which she very much wants to keep. Arrangements will be made for her to make this appointment. 4. History of nancy, for which she is treated with divalproex. She was not toxic on this medication, and it will be continued. Additionally, she has trazodone and clonazepam prescribed. Again, she will be observed for over- sedation, and medications may be adjusted. Consider assistance of psychiatry. 5. Recent urinary tract infection per her report with pyuria but a negative urine culture in the hospital. She will be observed for any return of symptoms. 6. Risk for deep venous deep venous thrombosis. She was discharged from the hospital on enoxaparin, and this will be continued until her mobility improves. 7. History of unintentional medication overdoses. She will have medication education. Her partner also will have medication education. Consider discharge with medication management per the assisted living. /[id number]/MODL MTDD
[2017-05-08] MEDS: BACLOFEN 20 MG TAB PO SCH ×2 (18:23→21:36)
[2017-05-08] MEDS: oxyCODONE CR 15 MG TAB PO SCH (21:36)
[2017-05-08] MEDS: traZODone 100 MG TAB PO SCH (21:36)
[2017-05-08] MEDS: GABAPENTIN 400 MG CAP PO SCH (21:37)
[2017-05-08] MEDS: DIVALPROEX ER 250 MG TAB PO SCH (21:37)
[2017-05-08] MEDS: LIDOCAINE 5% 1 EA PATCH TD SCH (21:38)
[2017-05-08] MEDS: DOCUSATE SODIUM 100 MG CAP PO SCH (22:03)
[2017-05-08] MEDS: SENNOSIDES/DOCUSATE SODIUM TAB PO SCH (22:04)
[2017-05-08] MEDS: TIZANIDINE HCL 8 MG PO SCH (22:12)
[2017-05-09] MEDS: traZODone 100 MG TAB PO PRN (00:05)
[2017-05-09] MEDS: IBUPROFEN 600 MG TAB PO PRN (00:54)
[2017-05-09] MEDS: BACLOFEN 20 MG TAB PO SCH ×5 (06:22→21:57)
[2017-05-09] MEDS ORDERED: PATCH REMOVAL 1 EA PATCH TD SCH (09:00)
[2017-05-09] MEDS: oxyCODONE CR 15 MG TAB PO SCH ×3 (09:49→21:58)
[2017-05-09] MEDS: SENNOSIDES/DOCUSATE SODIUM TAB PO SCH ×2 (09:50→22:11)
[2017-05-09] MEDS: DOCUSATE SODIUM 100 MG CAP PO SCH ×2 (09:51→21:58)
[2017-05-09] MEDS: ENOXAPARIN 40 MG/0.4 ML SYR SC SCH (09:51)
[2017-05-09] MEDS: GABAPENTIN 400 MG CAP PO SCH ×3 (09:52→21:58)
--- NOTE | 2017-05-09 10:59 | SOAPPROG ---
SOAP Progress Note Assessment/Plan: Assessment: 66 yo F with chronic progressive MS since 1987, hospitalized with weakness and AMS, 3rd time in 4 mo, due to UTI vs overuse of sedating medications: * Debility in a patient with chronic progressive multiple sclerosis. Physical and occupational therapy to optimize mobility and activities of daily living. * Cognitive impairment related to multiple sclerosis. Assessment and treatment per speech and language pathology. * Spasticity and chronic pain. Continue baclofen, gabapentin, tizanidine, and the lidocaine patch. Home medication doses were resumed in the hospital. Observe for over-sedation and for adequacy of pain control. * R knee DJD. She has an appointment with orthopedic surgeon, for a right knee injection on May 10, which she very much wants to keep. Arrangements will be made for her to make this appointment. * History of nancy, for which she is treated with divalproex. She was not toxic on this medication, and it will be continued. Additionally, she has trazodone and clonazepam prescribed. Again, she will be observed for over- sedation, and medications may be adjusted. Consider assistance of psychiatry. * Recent urinary tract infection per her report with pyuria but a negative urine culture in the hospital. She will be observed for any return of symptoms. * Risk for deep venous deep venous thrombosis. She was discharged from the hospital on enoxaparin, and this will be continued until her mobility improves. * History of unintentional medication overdoses. She will have medication education. Her partner also will have medication education. Consider discharge with medication management done by the assisted living. 05/09/17 12:36 Subjective: Says she stayed up late and was awakened early for therapy, so she feels tired today. O/W w/out complaint. No dysuria, f/c. 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 Objective: Vital Signs Temp Pulse Resp BP Pulse Ox 36.7 C 67 16 97/56 L 92 05/09/17 07:01 05/09/17 07:01 05/09/17 07:01 05/09/17 07:01 05/09/17 07:01 05/08/17 05/09/17 05/10/17 05:59 05:59 05:59 Intake Total 790 350 Balance 790 350 Physical Exam - Physical Exam General Appearance: WD/WN, alert, no apparent distress Respiratory: normal breath sounds, No crackles, No rhonchi, No wheezing Cardiac/Chest: regular rate, rhythm, No edema Skin: normal color, warm/dry Neuro/Psych: alert, normal mood/affect, oriented x 3, motor weakness ICD10 Worksheet Patient Problems: Problems Problem Status Onset Altered mental status Acute Fall Acute Multiple sclerosis Acute Weakness Acute
[2017-05-09] MEDS: DIVALPROEX ER 250 MG TAB PO SCH ×2 (11:17→21:58)
[2017-05-09] MEDS: TIZANIDINE HCL 8 MG PO SCH (22:02)
[2017-05-09] MEDS: traZODone 100 MG TAB PO SCH (22:06)
[2017-05-09] MEDS: LIDOCAINE 5% 1 EA PATCH TD SCH (22:08)
[2017-05-10] MEDS ORDERED: tiZANidine HCL 2 MG TAB ONE (04:11)
[2017-05-10] MEDS: BACLOFEN 20 MG TAB PO SCH ×5 (05:49→21:53)
[2017-05-10] MEDS: DOCUSATE SODIUM 100 MG CAP PO SCH ×2 (09:15→21:53)
[2017-05-10] MEDS: DIVALPROEX ER 250 MG TAB PO SCH ×2 (09:15→21:54)
[2017-05-10] MEDS: oxyCODONE CR 15 MG TAB PO SCH ×3 (09:15→21:54)
[2017-05-10] MEDS: SENNOSIDES/DOCUSATE SODIUM TAB PO SCH ×2 (09:15→21:53)
[2017-05-10] MEDS: GABAPENTIN 400 MG CAP PO SCH ×3 (09:15→21:53)
[2017-05-10] MEDS: LIDOCAINE 5% 1 EA PATCH TD SCH ×2 (09:26→21:55)
[2017-05-10] MEDS: PATCH REMOVAL 1 EA PATCH TD SCH (09:26)
--- NOTE | 2017-05-10 09:45 | PDOREHIP ---
Admission [facility] - Admission - 3 Day Assessment Period Admission Date/Day 1: 05/08/17 Day 2: 05/09/17 Day 3: 05/10/17 - Active Diagnoses Comorbidities and Co-existing Conditions at Admission: 38063. None of the Above - Skin Conditions Unhealed Pressure Ulcer (1 or more/Stage 1 or >)-Admission: 0. No
--- NOTE | 2017-05-10 09:48 | SOAPPROG ---
SOAP Progress Note Assessment/Plan: Assessment: 66 yo F with chronic progressive MS since 1987, hospitalized with weakness and AMS, 3rd time in 4 mo, due to UTI vs overuse of sedating medications: * Debility in a patient with chronic progressive multiple sclerosis. Initial FIM 58 pm 05/10/17. Max A bed mobility. seated balance mod A, t'jarrod mod A, UB dressing mod - max A, LB max A. Continue physical and occupational therapy to optimize mobility and activities of daily living. * Cognitive impairment related to multiple sclerosis. Did well on formal testing but also noted to be disorganized. Not receptive to EXTRUSION MANAGER; continue as tolerated 30 min QD. Plan for [facility] to take over medication management. * Spasticity and chronic pain. Continue baclofen, gabapentin, and the lidocaine patch. Home medication doses were resumed in the hospital except tizanidine 8 mg QHS as she was taking tablet and hospital only has capsule; restarting at 4 mg QHS. Observe for over-sedation and for adequacy of pain control. * R knee DJD. Orthopedic surgeon did not do right knee injection at appointment on May 10, as he didn;t think it would help. * History of nancy, for which she is treated with divalproex. She was not toxic on this medication, and it will be continued. Additionally, she has trazodone and clonazepam prescribed. Again, she will be observed for over- sedation, and medications may be adjusted. Consider assistance of psychiatry. * Recent urinary tract infection per her report with pyuria but a negative urine culture in the hospital. She will be observed for any return of symptoms. * Risk for deep venous deep venous thrombosis. She was discharged from the hospital on enoxaparin, and this will be continued until her mobility improves. * History of unintentional medication overdoses. Medication management will be done by the assisted living. Attended staffing, 15 min. D/W case mgmt, bereavement counselor, nursing, PT, OT, EXTRUSION MANAGER. Expect 2 week LOS with tentative discharge 05/24/17. 05/10/17 14:37 Subjective: No complaints. Slept well. Was requesting tizanidine at HS but then fell asleep without it. Has back pain and uses lidocaine patch at night. Getting R knee injection today per Orthopedics Dr. Brown. Objective: Vital Signs Temp Pulse Resp BP Pulse Ox 36.3 C 71 18 90/50 L 94 05/10/17 06:11 05/10/17 06:11 05/10/17 06:11 05/10/17 06:11 05/10/17 06:11 05/09/17 05/10/17 05/11/17 05:59 05:59 05:59 Intake Total 790 1410 Output Total 1000 Balance 790 410 - Time Spent With Patient Time Spent With Patient: Greater than 35 minutes floor time today, including more than 50% of time on coordination of care during staffing meeting, and counselingpatient. Physical Exam - Physical Exam General Appearance: WD/WN, alert, no apparent distress Respiratory: normal breath sounds, No crackles, No rhonchi, No wheezing Cardiac/Chest: regular rate, rhythm, No edema Skin: normal color, warm/dry Neuro/Psych: alert, normal mood/affect, oriented x 3 ICD10 Worksheet Patient Problems: Problems Problem Status Onset Altered mental status Acute Fall Acute Multiple sclerosis Acute Weakness Acute
[2017-05-10] MEDS: IBUPROFEN 600 MG TAB PO PRN (11:43)
[2017-05-10] MEDS: ENOXAPARIN 40 MG/0.4 ML SYR SC SCH (11:44)
[2017-05-10] MEDS: ACETAMINOPHEN 325 MG TAB PO PRN ×2 (14:15→18:42)
[2017-05-10] MEDS: traZODone 100 MG TAB PO SCH (21:54)
[2017-05-10] MEDS: TIZANIDINE HCL 8 MG PO SCH (23:43)
[2017-05-11] MEDS: IBUPROFEN 600 MG TAB PO PRN ×2 (01:35→21:07)
[2017-05-11] MEDS: BACLOFEN 20 MG TAB PO SCH ×5 (06:15→21:08)
[2017-05-11] MEDS: oxyCODONE CR 15 MG TAB PO SCH ×3 (08:55→21:08)
[2017-05-11] MEDS: ENOXAPARIN 40 MG/0.4 ML SYR SC SCH (08:55)
[2017-05-11] MEDS: SENNOSIDES/DOCUSATE SODIUM TAB PO SCH ×4 (08:56→21:14)
[2017-05-11] MEDS: DOCUSATE SODIUM 100 MG CAP PO SCH ×2 (08:56→21:09)
[2017-05-11] MEDS: DIVALPROEX ER 250 MG TAB PO SCH ×2 (08:56→21:06)
[2017-05-11] MEDS: GABAPENTIN 400 MG CAP PO SCH ×3 (08:56→21:08)
[2017-05-11] MEDS: PATCH REMOVAL 1 EA PATCH TD SCH (09:28)
--- NOTE | 2017-05-11 13:07 | SOAPPROG ---
SOAP Progress Note Assessment/Plan: Assessment: 66 yo F with chronic progressive MS since 1987, hospitalized with weakness and AMS, 3rd time in 4 mo, due to UTI vs overuse of sedating medications: * Debility in a patient with chronic progressive multiple sclerosis. Initial FIM 58 pm 05/10/17. Max A bed mobility. seated balance mod A, t'jarrod mod A, UB dressing mod - max A, LB max A. Continue physical and occupational therapy to optimize mobility and activities of daily living. * Cognitive impairment related to multiple sclerosis. Did well on formal testing but also noted to be disorganized. Not receptive to COMPLEX CASE MANAGER; continue as tolerated 30 min QD. Plan for [facility] to take over medication management. * Spasticity and chronic pain. Continue baclofen, gabapentin, and the lidocaine patch. Home medication doses were resumed in the hospital except tizanidine 8 mg QHS as she was taking tablet and hospital only has capsule; restarting at 4 mg QHS. Observe for over-sedation and for adequacy of pain control. * R knee DJD. Orthopedic surgeon did not do right knee injection at appointment on May 10, as he didn;t think it would help. * History of nancy, for which she is treated with divalproex. She was not toxic on this medication, and it will be continued. Additionally, she has trazodone and clonazepam prescribed. Again, she will be observed for over- sedation, and medications may be adjusted. Consider assistance of psychiatry. * Recent urinary tract infection per her report with pyuria but a negative urine culture in the hospital. She will be observed for any return of symptoms. * Risk for deep venous thrombosis. She was discharged from the hospital on enoxaparin, and this will be continued until her mobility improves. * History of unintentional medication overdoses. Medication management will be done by the assisted living. * Supplement: patient requesting review of her supplements, this is deferred to Dr Canales. Expect 2 week LOS with tentative discharge 05/24/17. Plan: Cont Dr Canales's rehab treatment plan. 05/11/17 13:04 Subjective: Confused, slow/slurred speech (baseline) NO new problems or C/O's No F/C/CP/SOB/N/V/D/C No dysuria/U/F Pleased with her initial benefit from therapies Objective: Vital Signs Temp Pulse Resp BP Pulse Ox 36.5 C 54 L 16 94/60 L 96 05/11/17 06:50 05/11/17 06:50 05/11/17 06:50 05/11/17 06:50 05/11/17 06:50 05/10/17 05/11/17 05/12/17 05:59 05:59 05:59 Intake Total 1410 1520 360 Output Total 1000 600 Balance 410 920 360 Physical Exam - Physical Exam General Appearance: alert, no apparent distress Neck: supple Respiratory: lungs clear Cardiac/Chest: regular rate, rhythm Skin: normal color, warm/dry, No rash Extremities: No pedal edema, No calf tenderness Neuro/Psych: alert, normal mood/affect, abnormal cerebellar tests, abnormal gait , motor weakness, cognition abnormalities, speech abnormalities, other (no acute changes) ICD10 Worksheet Patient Problems: Problems Problem Status Onset Altered mental status Acute Fall Acute Multiple sclerosis Acute Weakness Acute
[2017-05-11] MEDS: POLYETHYLENE GLYCOL 3350 17 GM PKT PO PRN (20:38)
[2017-05-11] MEDS: traZODone 100 MG TAB PO SCH (21:07)
[2017-05-11] MEDS: LIDOCAINE 5% 1 EA PATCH TD SCH (21:10)
[2017-05-12] MEDS: IBUPROFEN 600 MG TAB PO PRN ×2 (03:53→17:58)
[2017-05-12] MEDS: clonazePAM 0.5 MG TAB PO PRN (04:38)
[2017-05-12] MEDS: BACLOFEN 20 MG TAB PO SCH ×5 (06:30→22:11)
[2017-05-12] MEDS: DOCUSATE SODIUM 100 MG CAP PO SCH ×2 (08:36→21:07)
[2017-05-12] MEDS: DIVALPROEX ER 250 MG TAB PO SCH ×2 (08:37→21:06)
[2017-05-12] MEDS: GABAPENTIN 400 MG CAP PO SCH ×3 (08:37→21:07)
[2017-05-12] MEDS: SENNOSIDES/DOCUSATE SODIUM TAB PO SCH ×2 (08:37→21:06)
[2017-05-12] MEDS: oxyCODONE CR 15 MG TAB PO SCH ×3 (08:37→22:06)
[2017-05-12] MEDS: PATCH REMOVAL 1 EA PATCH TD SCH (08:38)
[2017-05-12] MEDS: ENOXAPARIN 40 MG/0.4 ML SYR SC SCH (08:38)
--- NOTE | 2017-05-12 15:23 | SOAPPROG ---
SOAP Progress Note Assessment/Plan: Assessment: 66 yo F with chronic progressive MS since 1987, hospitalized with weakness and AMS, 3rd time in 4 mo, due to UTI vs overuse of sedating medications: * Debility in a patient with chronic progressive multiple sclerosis. Initial FIM 58 pm 05/10/17. Max A bed mobility. seated balance mod A, t'jarrod mod A, UB dressing mod - max A, LB max A. Continue physical and occupational therapy to optimize mobility and activities of daily living. * Cognitive impairment related to multiple sclerosis. Did well on formal testing but also noted to be disorganized. Not receptive to BEHAVIORAL SCIENCES INSTRUCTOR; continue as tolerated 30 min QD. Plan for [facility] to take over medication management. * Spasticity and chronic pain. Improved. Continue baclofen, gabapentin, and the lidocaine patch. Home medication doses were resumed in the hospital except tizanidine 8 mg QHS as she was taking tablet and hospital only has capsule; restarting at 4 mg QHS. Observe for over-sedation and for adequacy of pain control. * R knee DJD. Orthopedic surgeon did not do right knee injection at appointment on May 10, as he didn;t think it would help. * History of nancy, for which she is treated with divalproex. She was not toxic on this medication, and it will be continued. Additionally, she has trazodone and clonazepam prescribed. Again, she will be observed for over- sedation, and medications may be adjusted. Consider assistance of psychiatry. * Recent urinary tract infection per her report with pyuria but a negative urine culture in the hospital. No reported signs/symptoms. * Risk for deep venous thrombosis. She was discharged from the hospital on enoxaparin, and this will be continued until her mobility improves. * History of unintentional medication overdoses. Medication management will be done by the assisted living. * Supplement: patient requesting review of her supplements, this is deferred to Dr Canales. Expect 2 week LOS with tentative discharge 05/24/17. Plan: Cont Dr Canales's rehab treatment plan. 05/12/17 15:20 Subjective: No new problems or C/O's No F/C/CP/SOB/N/V/D Objective: Vital Signs Temp Pulse Resp BP Pulse Ox 36.9 C 84 16 93/57 L 92 05/12/17 06:49 05/12/17 06:49 05/12/17 06:49 05/12/17 06:49 05/12/17 06:49 05/11/17 05/12/17 05/13/17 05:59 05:59 05:59 Intake Total 1520 1340 840 Output Total 600 150 Balance 920 1340 690 Physical Exam - Physical Exam General Appearance: alert, no apparent distress Neck: supple Respiratory: lungs clear Cardiac/Chest: regular rate, rhythm Skin: normal color, warm/dry Extremities: pedal edema Neuro/Psych: alert, normal mood/affect, oriented x 3, abnormal gait, motor weakness, No cognition abnormalities (appears significantly better than on admission) ICD10 Worksheet Patient Problems: Problems Problem Status Onset Altered mental status Acute Fall Acute Multiple sclerosis Acute Weakness Acute
[2017-05-12] MEDS ORDERED: BISACODYL 10 MG SUPP PR ONE (22:00)
[2017-05-12] MEDS: traZODone 100 MG TAB PO SCH (22:05)
[2017-05-12] MEDS: LIDOCAINE 5% 1 EA PATCH TD SCH (22:05)
[2017-05-13] MEDS: BACLOFEN 20 MG TAB PO SCH ×5 (06:39→21:14)
[2017-05-13] MEDS: IBUPROFEN 600 MG TAB PO PRN (06:39)
[2017-05-13] MEDS: ENOXAPARIN 40 MG/0.4 ML SYR SC SCH (08:58)
[2017-05-13] MEDS: GABAPENTIN 400 MG CAP PO SCH ×3 (08:58→21:14)
[2017-05-13] MEDS: DIVALPROEX ER 250 MG TAB PO SCH ×2 (08:58→21:16)
[2017-05-13] MEDS: DOCUSATE SODIUM 100 MG CAP PO SCH ×2 (08:59→21:16)
[2017-05-13] MEDS: oxyCODONE CR 15 MG TAB PO SCH ×3 (08:59→21:14)
[2017-05-13] MEDS: PATCH REMOVAL 1 EA PATCH TD SCH (08:59)
[2017-05-13] MEDS: SENNOSIDES/DOCUSATE SODIUM TAB PO SCH ×2 (08:59→21:17)
--- NOTE | 2017-05-13 13:12 | SOAPPROG ---
SOAP Progress Note Assessment/Plan: Assessment: 66 yo F with chronic progressive MS since 1987, hospitalized with weakness and AMS, 3rd time in 4 mo, due to UTI vs overuse of sedating medications: * Debility in a patient with chronic progressive multiple sclerosis. Initial FIM 58 pm 05/10/17 improving. Was max A bed mobility. seated balance mod A, t' jarrod mod A, UB dressing mod - max A, LB max A. Continue physical and occupational therapy to optimize mobility and activities of daily living. * Cognitive impairment related to multiple sclerosis. Did well on formal testing but also noted to be disorganized. Not receptive to MARKETING EXECUTIVE; continue as tolerated 30 min QD. Plan for [facility] to take over medication management. * Spasticity and chronic pain. Continue baclofen, gabapentin, and the lidocaine patch. Home medication doses were resumed in the hospital except tizanidine 8 mg QHS as she was taking tablet and hospital only has capsule; restarting at 4 mg QHS. Observe for over-sedation and for adequacy of pain control. * R knee DJD. Orthopedic surgeon did not do right knee injection at appointment on May 10, as he didn;t think it would help. * Requat for supplements. Ordered calcium & Vit D. Alpha-lipoic acid and biotin are not on formulary; she'll have to have them brought in. * History of nancy, for which she is treated with divalproex. She was not toxic on this medication, and it will be continued. Additionally, she has trazodone and clonazepam prescribed. Again, she will be observed for over- sedation, and medications may be adjusted. Consider assistance of psychiatry. * Recent urinary tract infection per her report with pyuria but a negative urine culture in the hospital. She will be observed for any return of symptoms. * Risk for deep venous deep venous thrombosis. She was discharged from the hospital on enoxaparin, and this will be continued until her mobility improves. * History of unintentional medication overdoses. Medication management will be done by the assisted living. Expect 2 week LOS with tentative discharge 05/24/17. 05/13/17 13:13 Subjective: Wants pass to leave the facility with her son this evening. He's in town for a few days doing a [employer] grounds manager class. She requests supplements: vit D 5000 U, calcium 1200 mg, alpha-lipoic acid, biotin. Objective: Vital Signs Temp Pulse Resp BP Pulse Ox 36.6 C 67 14 94/65 L 93 05/13/17 07:27 05/13/17 07:27 05/13/17 07:27 05/13/17 07:27 05/13/17 07:27 05/12/17 05/13/17 05/14/17 05:59 05:59 05:59 Intake Total 1340 1290 218 Output Total 150 Balance 1340 1140 218 Physical Exam - Physical Exam General Appearance: WD/WN, alert, no apparent distress Respiratory: No respiratory distress, No accessory muscle use Skin: normal color, warm/dry Neuro/Psych: alert, normal mood/affect, oriented x 3 ICD10 Worksheet Patient Problems: Problems Problem Status Onset Altered mental status Acute Fall Acute Multiple sclerosis Acute Weakness Acute
[2017-05-13] MEDS: CHOLECALCIFEROL VIT D3 2,000 UNITS TAB/CAP PO SCH (16:15)
[2017-05-13] MEDS: LIDOCAINE 5% 1 EA PATCH TD SCH (21:13)
[2017-05-13] MEDS: traZODone 100 MG TAB PO SCH (21:15)
[2017-05-14] MEDS: IBUPROFEN 600 MG TAB PO PRN (03:52)
[2017-05-14] MEDS: BACLOFEN 20 MG TAB PO SCH ×5 (06:31→22:43)
[2017-05-14] MEDS: POLYETHYLENE GLYCOL 3350 17 GM PKT PO PRN (09:04)
[2017-05-14] MEDS: CALCIUM CARBONATE 500 MG TAB PO SCH (09:06)
[2017-05-14] MEDS: CHOLECALCIFEROL VIT D3 2,000 UNITS TAB/CAP PO SCH (09:06)
[2017-05-14] MEDS: DIVALPROEX ER 250 MG TAB PO SCH ×2 (09:07→22:41)
[2017-05-14] MEDS: DOCUSATE SODIUM 100 MG CAP PO SCH (09:08)
[2017-05-14] MEDS: oxyCODONE CR 15 MG TAB PO SCH ×3 (09:08→22:41)
[2017-05-14] MEDS: GABAPENTIN 400 MG CAP PO SCH ×3 (09:08→22:43)
[2017-05-14] MEDS: SENNOSIDES/DOCUSATE SODIUM TAB PO SCH (09:09)
[2017-05-14] MEDS: ENOXAPARIN 40 MG/0.4 ML SYR SC SCH (09:11)
[2017-05-14] MEDS: ALPHA LIPOIC ACID PO SCH (09:15)
[2017-05-14] MEDS: PATCH REMOVAL 1 EA PATCH TD SCH (11:21)
--- NOTE | 2017-05-14 12:06 | SOAPPROG ---
SOAP Progress Note Assessment/Plan: Assessment: 66 yo F with chronic progressive MS since 1987, hospitalized with weakness and AMS, 3rd time in 4 mo, due to UTI vs overuse of sedating medications: * Debility in a patient with chronic progressive multiple sclerosis. Initial FIM 58 pm 05/10/17, improved to 82 on 05/14/17. Bed mobility and transfers variable SBA to CGA with cues, worse with fatigue. UB dressing min A, LB mod A including cues for safe posture. Bathing mod A, shower transfer min A. Continue physical and occupational therapy to optimize mobility and activities of daily living. * Cognitive impairment related to multiple sclerosis. Did well on formal testing but also noted to be disorganized. Not receptive to TEST ADMINISTRATOR; continue as tolerated 30 min QD. Plan for [facility] to take over medication management. * Spasticity and chronic pain. Continue baclofen, gabapentin, and the lidocaine patch. Home medication doses were resumed in the hospital except tizanidine 8 mg QHS as she was taking tablet and hospital only has capsule; restarting at 4 mg QHS. Observe for over-sedation and for adequacy of pain control. * R knee DJD. Orthopedic surgeon did not do right knee injection at appointment on Saturday, May 10, as he didn't think it would help. * Request for supplements. Ordered calcium & Vit D. Alpha-lipoic acid and biotin are not on formulary; she'll have to have them brought in. * History of nancy, for which she is treated with divalproex. She was not toxic on this medication, and it will be continued. Additionally, she has trazodone and clonazepam prescribed. Again, she will be observed for over- sedation, and medications may be adjusted. Consider assistance of psychiatry. * Recent urinary tract infection per her report with pyuria but a negative urine culture in the hospital. She will be observed for any return of symptoms. * Risk for deep venous deep venous thrombosis. She was discharged from the hospital on enoxaparin, and this will be continued until her mobility improves. * History of unintentional medication overdoses. Medication management will be done by the assisted living. Attended staffing, 15 min. D/W case mgmt, nursing, PT, OT, TEST ADMINISTRATOR, flight security specialist. Will return to [facility] and have home care versus outpatient services. Case mgmt to determine level of assistance at [facility]. Tentative discharge 05/22/17; repeat staffing 05/20/17. 05/14/17 13:47 Subjective: No complaints. Objective: Vital Signs Temp Pulse Resp BP Pulse Ox 36.5 C 60 16 92/47 L 90 L 05/14/17 06:33 05/14/17 06:33 05/14/17 06:33 05/14/17 06:33 05/14/17 06:33 05/13/17 05/14/17 05/15/17 05:59 05:59 05:59 Intake Total 1290 793 236 Output Total 150 200 Balance 1140 593 236 - Time Spent With Patient Time Spent With Patient: Greater than 35 minutes floor time today, including more than 50% of time incoordination f care during staffing meeting, and counseling patient. ICD10 Worksheet Patient Problems: Problems Problem Status Onset Altered mental status Acute Fall Acute Multiple sclerosis Acute Weakness Acute
[2017-05-14] MEDS: SENNOSIDES 1 TAB PO SCH ×2 (22:40→23:09)
[2017-05-14] MEDS: traZODone 100 MG TAB PO SCH (22:42)
[2017-05-14] MEDS: LIDOCAINE 5% 1 EA PATCH TD SCH (22:44)
[2017-05-15] MEDS: IBUPROFEN 600 MG TAB PO PRN ×2 (00:41→20:09)
[2017-05-15] MEDS: clonazePAM 0.5 MG TAB PO PRN (02:30)
[2017-05-15] MEDS: BACLOFEN 20 MG TAB PO SCH ×5 (06:35→20:59)
[2017-05-15] MEDS: CHOLECALCIFEROL VIT D3 2,000 UNITS TAB/CAP PO SCH (09:08)
[2017-05-15] MEDS: ENOXAPARIN 40 MG/0.4 ML SYR SC SCH (09:08)
[2017-05-15] MEDS: oxyCODONE CR 15 MG TAB PO SCH ×3 (09:08→21:00)
[2017-05-15] MEDS: DIVALPROEX ER 250 MG TAB PO SCH ×2 (09:08→20:59)
[2017-05-15] MEDS: SENNOSIDES 1 TAB PO SCH ×2 (09:08→21:09)
[2017-05-15] MEDS: CALCIUM CARBONATE 500 MG TAB PO SCH (09:08)
[2017-05-15] MEDS: GABAPENTIN 400 MG CAP PO SCH ×3 (09:08→20:59)
[2017-05-15] MEDS: PATCH REMOVAL 1 EA PATCH TD SCH (09:47)
[2017-05-15] MEDS: ALPHA LIPOIC ACID PO SCH (09:47)
--- NOTE | 2017-05-15 13:21 | SOAPPROG ---
SOAP Progress Note Assessment/Plan: Assessment: 66 yo F with chronic progressive MS since 1987, hospitalized with weakness and AMS, 3rd time in 4 mo, due to UTI vs overuse of sedating medications: * Debility in a patient with chronic progressive multiple sclerosis. Initial FIM 58 pm 05/10/17, improved to 82 on 05/14/17. Bed mobility and transfers variable SBA to CGA with cues, worse with fatigue. UB dressing min A, LB mod A including cues for safe posture. Bathing mod A, shower transfer min A. Continue physical and occupational therapy to optimize mobility and activities of daily living. * Cognitive impairment related to multiple sclerosis. Did well on formal testing but also noted to be disorganized. Not receptive to SCENE PAINTER; continue as tolerated 30 min QD. Plan for [facility] to take over medication management. * Spasticity and chronic pain. Improved with strengthening and stretching per PT & OT. Continue oxyCR, baclofen, gabapentin, and the lidocaine patch. Restarted tizanidine at 4 mg QHS; per her request, change to 0230 starting and administer if awake.. Observe for over-sedation and for adequacy of pain control. * R knee DJD. Orthopedic surgeon did not do right knee injection at appointment on Saturday, May 10, as he didn't think it would help. * Request for supplements. Ordered calcium & Vit D. Alpha-lipoic acid and biotin are not on formulary; she'll have to have them brought in. * History of nancy, for which she is treated with divalproex. She was not toxic on this medication, and it will be continued. Additionally, she has trazodone and clonazepam prescribed. Again, she will be observed for over- sedation, and medications may be adjusted. Consider assistance of psychiatry. * Recent urinary tract infection per her report with pyuria but a negative urine culture in the hospital. She will be observed for any return of symptoms. * Risk for deep venous deep venous thrombosis. She was discharged from the hospital on enoxaparin, and this will be continued until her mobility improves. * History of unintentional medication overdoses. Medication management will be done by the assisted living. Will return to [facility] and have home care versus outpatient services. Case mgmt to determine level of assistance at [facility]. Tentative discharge 05/22/17; repeat staffing 05/20/17. 05/15/17 13:15 Subjective: Walked today. Pain generally improved with stretching and strengthening per PT & OT. Wants changes in dosing times of tizanidine, gabapentin and oxycodone. Objective: Vital Signs Temp Pulse Resp BP Pulse Ox 37.0 C 61 16 96/57 L 96 05/15/17 06:46 05/15/17 06:46 05/15/17 06:46 05/15/17 06:46 05/15/17 06:46 05/14/17 05/15/17 05/16/17 05:59 05:59 05:59 Intake Total 793 436 225 Output Total 200 Balance 593 436 225 Physical Exam - Physical Exam General Appearance: WD/WN, alert, no apparent distress Respiratory: No respiratory distress, No accessory muscle use Skin: normal color, warm/dry Neuro/Psych: alert, normal mood/affect, oriented x 3, abnormal gait (Ambulating with PT, bilateral trekking poles held high and wide, flexed posture, short steps) ICD10 Worksheet Patient Problems: Problems Problem Status Onset Altered mental status Acute Fall Acute Multiple sclerosis Acute Weakness Acute
[2017-05-15] MEDS: LIDOCAINE 5% 1 EA PATCH TD SCH (21:08)
[2017-05-15] MEDS: traZODone 100 MG TAB PO SCH (21:09)
[2017-05-15] MEDS: BISACODYL 10 MG SUPP PR PRN (21:13)
[2017-05-16] MEDS: IBUPROFEN 600 MG TAB PO PRN ×3 (05:34→19:51)
[2017-05-16] MEDS: BACLOFEN 20 MG TAB PO SCH ×5 (05:35→21:39)
[2017-05-16] MEDS: GABAPENTIN 400 MG CAP PO SCH ×4 (08:31→21:43)
[2017-05-16] MEDS: DIVALPROEX ER 250 MG TAB PO SCH ×2 (08:32→21:38)
[2017-05-16] MEDS: CALCIUM CARBONATE 500 MG TAB PO SCH (08:32)
[2017-05-16] MEDS: CHOLECALCIFEROL VIT D3 2,000 UNITS TAB/CAP PO SCH (08:32)
[2017-05-16] MEDS: SENNOSIDES 1 TAB PO SCH ×2 (08:32→21:38)
[2017-05-16] MEDS: ENOXAPARIN 40 MG/0.4 ML SYR SC SCH (08:32)
[2017-05-16] MEDS: oxyCODONE CR 15 MG TAB PO SCH ×3 (08:32→21:38)
[2017-05-16] MEDS: PATCH REMOVAL 1 EA PATCH TD SCH (08:33)
[2017-05-16] MEDS ORDERED: ALPHA LIPOIC ACID PO SCH (09:00)
[2017-05-16] MEDS: ALPHA LIPOIC ACID PO SCH (10:44)
--- NOTE | 2017-05-16 11:57 | SOAPPROG ---
SOAP Progress Note Assessment/Plan: Assessment: 66 yo F with chronic progressive MS since 1987, hospitalized with weakness and AMS, 3rd time in 4 mo, due to UTI vs overuse of sedating medications: 05/16/2017 requested that patient not attend her dentist appointment, she was clearly not happy with that recommendation. She allowed us to cancel her appointment and reschedule. She was not amenable to discussing other issues today, remainder of plan below is unchanged. A total of 30 minutes was spent on the floor in the care of the patient, the majority of which was spent in the counseling and coronation of care regarding her dentist appointment. * Debility in a patient with chronic progressive multiple sclerosis. Initial FIM 58 pm 05/10/17, improved to 82 on 05/14/17. Bed mobility and transfers variable SBA to CGA with cues, worse with fatigue. UB dressing min A, LB mod A including cues for safe posture. Bathing mod A, shower transfer min A. Continue physical and occupational therapy to optimize mobility and activities of daily living. * Cognitive impairment related to multiple sclerosis. Did well on formal testing but also noted to be disorganized. Not receptive to RAIL LOADER; continue as tolerated 30 min QD. Plan for [facility] to take over medication management. * Spasticity and chronic pain. Improved with strengthening and stretching per PT & OT. Continue oxyCR, baclofen, gabapentin, and the lidocaine patch. Restarted tizanidine at 4 mg QHS; per her request, change to 0230 starting and administer if awake.. Observe for over-sedation and for adequacy of pain control. * R knee DJD. Orthopedic surgeon did not do right knee injection at appointment on Saturday, May 10, as he didn't think it would help. * Request for supplements. Ordered calcium & Vit D. Alpha-lipoic acid and biotin are not on formulary; she'll have to have them brought in. * History of nancy, for which she is treated with divalproex. She was not toxic on this medication, and it will be continued. Additionally, she has trazodone and clonazepam prescribed. Again, she will be observed for over- sedation, and medications may be adjusted. Consider assistance of psychiatry. * Recent urinary tract infection per her report with pyuria but a negative urine culture in the hospital. She will be observed for any return of symptoms. * Risk for deep venous deep venous thrombosis. She was discharged from the hospital on enoxaparin, and this will be continued until her mobility improves. * History of unintentional medication overdoses. Medication management will be done by the assisted living. Will return to [facility] and have home care versus outpatient services. Case mgmt to determine level of assistance at [facility]. Tentative discharge 05/22/17; repeat staffing 05/20/17. Plan: 05/16/17 11:54 Subjective: CC: "gingivitis" No acute events overnight. Patient today is very distraught over a dentist appointment scheduled for 10 AM. She says that she has been trying to get this appointment for a month, she notes that she has chronic gingivitis and feels that she needs the preventative dentistry care urgently. Expressed to her that she is currently an inpatient in a hospital and that we generally defer these types of appointments until after the acute care course to maximize her benefit in inpatient rehabilitation and to manage her medical issues. She was not happy with this discussion, but allowed staff to call and cancel her appointment and reschedule for a month or so away. On additional review systems, she refused to answer citing her displeasure with the dentist appointment arrangement. Objective: Vital Signs Temp Pulse Resp BP Pulse Ox 36.3 C 62 16 103/68 94 05/16/17 08:00 05/16/17 08:00 05/16/17 08:00 05/16/17 08:00 05/16/17 08:00 05/15/17 05/16/17 05/17/17 05:59 05:59 05:59 Intake Total 436 225 650 Balance 436 225 650 Physical Exam - Physical Exam General Appearance: WD/WN, alert, no apparent distress EENT: other (She flashed her gums, did not appear inflamed. Could not do a more thorough exam due to patient participation.) Respiratory: No respiratory distress, No accessory muscle use Cardiac/Chest: normal peripheral pulses, regular rate, rhythm Skin: normal color, warm/dry, No cyanosis Extremities: No pedal edema, No swelling Neuro/Psych: alert, No normal mood/affect (agitated) ICD10 Worksheet Patient Problems: Problems Problem Status Onset Altered mental status Acute Fall Acute Multiple sclerosis Acute Weakness Acute
[2017-05-16] MEDS: LIDOCAINE 5% 1 EA PATCH TD SCH (21:38)
[2017-05-16] MEDS: traZODone 100 MG TAB PO SCH (21:39)
[2017-05-17] MEDS: clonazePAM 0.5 MG TAB PO PRN (01:21)
[2017-05-17] MEDS: BACLOFEN 20 MG TAB PO SCH ×5 (09:20→22:07)
[2017-05-17] MEDS: DIVALPROEX ER 250 MG TAB PO SCH ×2 (09:20→21:14)
[2017-05-17] MEDS: GABAPENTIN 400 MG CAP PO SCH ×3 (09:21→22:08)
[2017-05-17] MEDS: oxyCODONE CR 15 MG TAB PO SCH ×3 (09:21→22:07)
[2017-05-17] MEDS: CHOLECALCIFEROL VIT D3 2,000 UNITS TAB/CAP PO SCH (09:43)
[2017-05-17] MEDS: CALCIUM CARBONATE 500 MG TAB PO SCH (09:43)
[2017-05-17] MEDS: ALPHA LIPOIC ACID PO SCH (09:44)
[2017-05-17] MEDS: POLYETHYLENE GLYCOL 3350 17 GM PKT PO SCH (09:46)
[2017-05-17] MEDS: SENNOSIDES 1 TAB PO SCH ×2 (09:46→21:14)
[2017-05-17] MEDS: ACETAMINOPHEN 325 MG TAB PO PRN (11:18)
[2017-05-17] MEDS: ENOXAPARIN 40 MG/0.4 ML SYR SC SCH (11:19)
[2017-05-17] MEDS: PATCH REMOVAL 1 EA PATCH TD SCH (12:51)
--- NOTE | 2017-05-17 13:13 | SOAPPROG ---
SOAP Progress Note Assessment/Plan: Assessment: 66 yo F with chronic progressive MS since 1987, hospitalized with weakness and AMS, 3rd time in 4 mo, due to UTI vs overuse of sedating medications: 05/17/2017 scheduled MiraLAX, adding melatonin for insomnia. Discussed baclofen dose with her, she would prefer to keep it at the present dose and work with her neurologist in the future. Otherwise participating, remainder of plan below is unchanged. * Debility in a patient with chronic progressive multiple sclerosis. Initial FIM 58 pm 05/10/17, improved to 82 on 05/14/17. Bed mobility and transfers variable SBA to CGA with cues, worse with fatigue. UB dressing min A, LB mod A including cues for safe posture. Bathing mod A, shower transfer min A. Continue physical and occupational therapy to optimize mobility and activities of daily living. * Cognitive impairment related to multiple sclerosis. Did well on formal testing but also noted to be disorganized. Not receptive to STILL OPERATOR WHISKEY; continue as tolerated 30 min QD. Plan for [facility] to take over medication management. * Spasticity and chronic pain. Improved with strengthening and stretching per PT & OT. Continue oxyCR, baclofen, gabapentin, and the lidocaine patch. Restarted tizanidine at 4 mg QHS; per her request, change to 0230 starting and administer if awake.. Observe for over-sedation and for adequacy of pain control. * R knee DJD. Orthopedic surgeon did not do right knee injection at appointment on Saturday, May 10, as he didn't think it would help. * Request for supplements. Ordered calcium & Vit D. Alpha-lipoic acid and biotin are not on formulary; she'll have to have them brought in. * History of nancy, for which she is treated with divalproex. She was not toxic on this medication, and it will be continued. Additionally, she has trazodone and clonazepam prescribed. Again, she will be observed for over- sedation, and medications may be adjusted. Consider assistance of psychiatry. * Recent urinary tract infection per her report with pyuria but a negative urine culture in the hospital. She will be observed for any return of symptoms. * Risk for deep venous deep venous thrombosis. She was discharged from the hospital on enoxaparin, and this will be continued until her mobility improves. * History of unintentional medication overdoses. Medication management will be done by the assisted living. * Insomnia: continue trazodone and start melatonin Will return to [facility] and have home care versus outpatient services. Case mgmt to determine level of assistance at [facility]. Tentative discharge 05/22/17; repeat staffing 05/20/17. Plan: 05/16/17 11:54 05/17/17 13:09 05/17/17 13:14 Subjective: CC: insomnia patient endorses some ongoing insomnia, currently on trazodone. She would like to try melatonin as she overheard a conversation about it with another patient. Participating will and therapies, no other concerns today. Identified with her that she is on a very high dose of baclofen and that doses above 80 mg per day have not been shown to be effective for decreasing spasticity. She noted that she would discuss it with her provider. Denies any new shortness of breath or chest pain, no new numbness, tingling, or weakness. Objective: Vital Signs Temp Pulse Resp BP Pulse Ox 37.0 C 55 L 16 103/67 93 05/16/17 20:00 05/16/17 20:00 05/16/17 20:00 05/16/17 20:00 05/16/17 20:00 05/16/17 05/17/17 05/18/17 05:59 05:59 05:59 Intake Total 225 1630 Balance 225 1630 Physical Exam - Physical Exam General Appearance: WD/WN, alert, no apparent distress Respiratory: No respiratory distress, No accessory muscle use Cardiac/Chest: regular rate, rhythm, No edema Skin: normal color, warm/dry, No cyanosis Extremities: No pedal edema, No swelling Neuro/Psych: alert, normal mood/affect, other ( Ambulating with two walking sticks with contact guard assistance in the hallway.) ICD10 Worksheet Patient Problems: Problems Problem Status Onset Altered mental status Acute Fall Acute Multiple sclerosis Acute Weakness Acute
[2017-05-17] MEDS: BISACODYL 10 MG SUPP PR PRN (19:58)
[2017-05-17] MEDS: MELATONIN 3 MG TAB PO SCH (21:15)
[2017-05-17] MEDS: LIDOCAINE 5% 1 EA PATCH TD SCH (21:16)
[2017-05-17] MEDS: traZODone 100 MG TAB PO SCH (21:19)
[2017-05-18] MEDS: IBUPROFEN 600 MG TAB PO PRN ×2 (00:16→15:35)
[2017-05-18] MEDS: BACLOFEN 20 MG TAB PO SCH ×5 (05:51→21:38)
[2017-05-18] MEDS: DIVALPROEX ER 250 MG TAB PO SCH ×2 (08:06→21:38)
[2017-05-18] MEDS: GABAPENTIN 400 MG CAP PO SCH ×2 (08:06→08:08)
[2017-05-18] MEDS: oxyCODONE CR 15 MG TAB PO SCH ×3 (08:06→21:38)
[2017-05-18] MEDS: CALCIUM CARBONATE 500 MG TAB PO SCH (09:22)
[2017-05-18] MEDS: CHOLECALCIFEROL VIT D3 2,000 UNITS TAB/CAP PO SCH (09:22)
[2017-05-18] MEDS: SENNOSIDES 1 TAB PO SCH ×2 (09:36→21:38)
[2017-05-18] MEDS: POLYETHYLENE GLYCOL 3350 17 GM PKT PO SCH (09:39)
[2017-05-18] MEDS: ENOXAPARIN 40 MG/0.4 ML SYR SC SCH (09:41)
[2017-05-18] MEDS: ALPHA LIPOIC ACID PO SCH (09:45)
[2017-05-18] MEDS: PATCH REMOVAL 1 EA PATCH TD SCH (09:54)
--- NOTE | 2017-05-18 11:43 | SOAPPROG ---
SOAP Progress Note Assessment/Plan: Assessment: 66 yo F with chronic progressive MS since 1987, hospitalized with weakness and AMS, 3rd time in 4 mo, due to UTI vs overuse of sedating medications: 05/18/2017 changing gabapentin to 100 mg TID to taper, she is concerned about impact on cognition. Slept very well with melatonin. * Debility in a patient with chronic progressive multiple sclerosis. Initial FIM 58 pm 05/10/17, improved to 82 on 05/14/17. Bed mobility and transfers variable SBA to CGA with cues, worse with fatigue. UB dressing min A, LB mod A including cues for safe posture. Bathing mod A, shower transfer min A. Continue physical and occupational therapy to optimize mobility and activities of daily living. * Cognitive impairment related to multiple sclerosis. Did well on formal testing but also noted to be disorganized. 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 Plan for [facility] to take over medication management. * Spasticity and chronic pain. Improved with strengthening and stretching per PT & OT. Continue oxyCR, baclofen, and the lidocaine patch. Restarted tizanidine at 4 mg QHS; per her request, change to 0230 starting 05/16/17 and administer if awake.. Observe for over-sedation and for adequacy of pain control. Tapering gabapentin * R knee DJD. Orthopedic surgeon did not do right knee injection at appointment on May 10, as he didn't think it would help. * Request for supplements. Ordered calcium & Vit D. Alpha-lipoic acid and biotin are not on formulary; she'll have to have them brought in. * History of nancy, for which she is treated with divalproex. She was not toxic on this medication, and it will be continued. Additionally, she has trazodone and clonazepam prescribed. Again, she will be observed for over- sedation, and medications may be adjusted. Consider assistance of psychiatry. * Recent urinary tract infection per her report with pyuria but a negative urine culture in the hospital. She will be observed for any return of symptoms. * Risk for deep venous deep venous thrombosis. She was discharged from the hospital on enoxaparin, and this will be continued until her mobility improves. * History of unintentional medication overdoses. Medication management will be done by the assisted living. * Insomnia: continue trazodone and melatonin Will return to [facility] and have home care versus outpatient services. Case mgmt to determine level of assistance at [facility]. Tentative discharge 05/22/17; repeat staffing 05/20/17. Plan: 05/16/17 11:54 05/17/17 13:09 05/17/17 13:14 05/18/17 11:40 Subjective: CC: gabapentin sedation no acute events overnight. Patient endorses that gabapentin somewhat sedating and she is been refusing doses. Discussed with her plan to taper, going to 100 mg TID which she agreed to. denies any shortness of breath, chest pain, new numbness, tingling, or weakness. Objective: Vital Signs Temp Pulse Resp BP Pulse Ox 36.5 C 71 16 112/73 93 05/18/17 05:52 05/18/17 05:52 05/18/17 05:52 05/18/17 05:52 05/18/17 05:52 05/17/17 05/18/17 05/19/17 05:59 05:59 05:59 Intake Total 1630 707 750 Balance 1630 707 750 Physical Exam - Physical Exam General Appearance: WD/WN, alert, no apparent distress Respiratory: No respiratory distress, No accessory muscle use Skin: normal color, warm/dry, No cyanosis Neuro/Psych: alert, normal mood/affect ICD10 Worksheet Patient Problems: Problems Problem Status Onset Altered mental status Acute Fall Acute Multiple sclerosis Acute Weakness Acute
[2017-05-18] MEDS: GABAPENTIN 100 MG CAP PO SCH ×2 (16:20→21:36)
[2017-05-18] MEDS: LIDOCAINE 5% 1 EA PATCH TD SCH (21:36)
[2017-05-18] MEDS: MELATONIN 3 MG TAB PO SCH (21:38)
[2017-05-18] MEDS: traZODone 100 MG TAB PO SCH (21:39)
[2017-05-19] MEDS: BACLOFEN 20 MG TAB PO SCH ×5 (06:23→21:29)
[2017-05-19] MEDS: CALCIUM CARBONATE 500 MG TAB PO SCH (08:53)
[2017-05-19] MEDS: SENNOSIDES 1 TAB PO SCH ×2 (08:53→21:29)
[2017-05-19] MEDS: DIVALPROEX ER 250 MG TAB PO SCH ×2 (08:53→21:26)
[2017-05-19] MEDS: POLYETHYLENE GLYCOL 3350 17 GM PKT PO SCH (08:54)
[2017-05-19] MEDS: CHOLECALCIFEROL VIT D3 2,000 UNITS TAB/CAP PO SCH (08:54)
[2017-05-19] MEDS: ENOXAPARIN 40 MG/0.4 ML SYR SC SCH (08:54)
[2017-05-19] MEDS: oxyCODONE CR 15 MG TAB PO SCH ×3 (08:55→21:27)
[2017-05-19] MEDS: GABAPENTIN 100 MG CAP PO SCH ×3 (08:55→21:30)
[2017-05-19] MEDS: ALPHA LIPOIC ACID PO SCH (09:02)
[2017-05-19] MEDS: PATCH REMOVAL 1 EA PATCH TD SCH (10:04)
--- NOTE | 2017-05-19 11:21 | SOAPPROG ---
SOAP Progress Note Assessment/Plan: Assessment: 66 yo F with chronic progressive MS since 1987, hospitalized with weakness and AMS, 3rd time in 4 mo, due to UTI vs overuse of sedating medications: 05/19 much better on lower dose of gabapentin, pay not an issue today. Participating well with therapies. Continue plan * Debility in a patient with chronic progressive multiple sclerosis. Initial FIM 58 pm 05/10/17, improved to 82 on 05/14/17. Bed mobility and transfers variable SBA to CGA with cues, worse with fatigue. UB dressing min A, LB mod A including cues for safe posture. Bathing mod A, shower transfer min A. Continue physical and occupational therapy to optimize mobility and activities of daily living. * Cognitive impairment related to multiple sclerosis. Did well on formal testing but also noted to be disorganized. Not receptive to DRUM SEALER; continue as tolerated 30 min QD. Plan for [facility] to take over medication management. * Spasticity and chronic pain. Improved with strengthening and stretching per PT & OT. Continue oxyCR, baclofen, and the lidocaine patch. Restarted tizanidine at 4 mg QHS; per her request, change to 0230 starting 05/16/17 and administer if awake.. Observe for over-sedation and for adequacy of pain control. Tapering gabapentin (stop on 05/21). * R knee DJD. Orthopedic surgeon did not do right knee injection at appointment on Saturday, May 10, as he didn't think it would help. * Request for supplements. Ordered calcium & Vit D. Alpha-lipoic acid and biotin are not on formulary; she'll have to have them brought in. * History of nancy, for which she is treated with divalproex. She was not toxic on this medication, and it will be continued. Additionally, she has trazodone and clonazepam prescribed. Again, she will be observed for over- sedation, and medications may be adjusted. Consider assistance of psychiatry. * Recent urinary tract infection per her report with pyuria but a negative urine culture in the hospital. She will be observed for any return of symptoms. * Risk for deep venous deep venous thrombosis. She was discharged from the hospital on enoxaparin, and this will be continued until her mobility improves. * History of unintentional medication overdoses. Medication management will be done by the assisted living. * Insomnia: continue trazodone and melatonin Will return to [facility] and have home care versus outpatient services. Case mgmt to determine level of assistance at [facility]. Tentative discharge 05/22/17; repeat staffing 05/20/17. Plan: 05/16/17 11:54 05/17/17 13:09 05/17/17 13:14 05/18/17 11:40 05/19/17 11:18 Subjective: CC: gabapentin side effects no acute events overnight. Patient endorsed better symptoms on the lower dose of gabapentin. Pain not an issue today. Participating [email or web address], she has no other concerns. Denies any shortness of breath, chest pain, fever, chills, sweats, numbness, tingling, or weakness. Objective: Vital Signs Temp Pulse Resp BP Pulse Ox 36.4 C 72 16 108/64 94 05/19/17 07:42 05/19/17 07:42 05/19/17 07:42 05/19/17 07:42 05/19/17 07:42 05/18/17 05/19/17 05/20/17 05:59 05:59 05:59 Intake Total 707 2010 540 Balance 707 2009 540 Physical Exam - Physical Exam General Appearance: WD/WN, alert, no apparent distress Respiratory: No respiratory distress, No accessory muscle use Cardiac/Chest: regular rate, rhythm, No edema Skin: normal color, warm/dry, No cyanosis Extremities: No pedal edema, No swelling Neuro/Psych: alert, normal mood/affect, other ( Observed standing and doing manual skills in occupational therapy. She does have forward flexion at the hips , decreased hip range of motion per occupational therapy. standing with standby assist.) ICD10 Worksheet Patient Problems: Problems Problem Status Onset Altered mental status Acute Fall Acute Multiple sclerosis Acute Weakness Acute
[2017-05-19] MEDS: LIDOCAINE 5% 1 EA PATCH TD SCH (21:33)
[2017-05-19] MEDS: traZODone 100 MG TAB PO SCH (22:39)
[2017-05-19] MEDS: MELATONIN 3 MG TAB PO SCH (22:39)
[2017-05-20] MEDS: BACLOFEN 20 MG TAB PO SCH ×5 (06:22→21:16)
[2017-05-20] MEDS: CALCIUM CARBONATE 500 MG TAB PO SCH (09:10)
[2017-05-20] MEDS: CHOLECALCIFEROL VIT D3 2,000 UNITS TAB/CAP PO SCH (09:10)
[2017-05-20] MEDS: ENOXAPARIN 40 MG/0.4 ML SYR SC SCH (09:12)
[2017-05-20] MEDS: DIVALPROEX ER 250 MG TAB PO SCH ×2 (09:12→21:16)
[2017-05-20] MEDS: SENNOSIDES 1 TAB PO SCH ×2 (09:13→21:17)
[2017-05-20] MEDS: POLYETHYLENE GLYCOL 3350 17 GM PKT PO SCH (09:13)
[2017-05-20] MEDS: oxyCODONE CR 15 MG TAB PO SCH ×3 (09:13→21:53)
[2017-05-20] MEDS: GABAPENTIN 100 MG CAP PO SCH (09:13)
[2017-05-20] MEDS: ALPHA LIPOIC ACID PO SCH (09:29)
[2017-05-20] MEDS: PATCH REMOVAL 1 EA PATCH TD SCH (09:59)
--- NOTE | 2017-05-20 13:35 | SOAPPROG ---
SOAP Progress Note Assessment/Plan: Assessment: 66 yo F with chronic progressive MS since 1987, hospitalized with weakness and AMS, 3rd time in 4 mo, due to UTI vs overuse of sedating medications: * Debility in a patient with chronic progressive multiple sclerosis. Initial FIM 58 pm 05/10/17, improved to 82 on 05/14/17; to 90 as of 05/20/17. Decreased endurance and posture progressively flexed as she walks. S for t'fers. S/set- up UB dressing, min A UB. Poor carry-over of techniques, Continue physical and occupational therapy to optimize mobility and activities of daily living. * Cognitive impairment related to multiple sclerosis. Did well on formal testing but also noted to be disorganized. Not receptive to DECORATOR MANNEQUIN;. Plan for [facility] to take over medication management. * Spasticity and chronic pain. Improved with strengthening and stretching per PT & OT. Continue oxyCR, baclofen, and the lidocaine patch. Restarted tizanidine at 4 mg QHS; per her request, change to 0230 starting 05/16/17 and administer if awake.. D/C gabapentin at her request 05/20/17. Observe for over- sedation and for adequacy of pain control. * R knee DJD. Orthopedic surgeon did not do right knee injection at appointment on May 10, as he didn't think it would help. * Request for supplements. Ordered calcium & Vit D. Alpha-lipoic acid and biotin are not on formulary; she'll have to have them brought in. * History of nancy, for which she is treated with divalproex. She was not toxic on this medication, and it will be continued. Additionally, she has trazodone and clonazepam prescribed. Again, she will be observed for over- sedation, and medications may be adjusted. Consider assistance of psychiatry. * Recent urinary tract infection per her report with pyuria but a negative urine culture in the hospital. She will be observed for any return of symptoms. * Risk for deep venous deep venous thrombosis. She was discharged from the hospital on enoxaparin, and this will be continued until her mobility improves. * History of unintentional medication overdoses. Medication management will be done by the assisted living. Attended staffing, 15 min. D/W case mgmt, nnursing, PT, OT, DECORATOR MANNEQUIN. Will return to [facility] and have home care versus outpatient services. Tentative discharge . 05/20/17 13:35 Subjective: Wants to stop gabapentin. Says it was started for nerve pain but does not help ; OxyCr helps. No BM since 05/17; will get suppository this evening. Objective: Vital Signs Temp Pulse Resp BP Pulse Ox 36.6 C 93 15 114/79 94 05/20/17 07:58 05/20/17 07:58 05/20/17 07:58 05/20/17 07:58 05/20/17 07:58 05/19/17 05/20/17 05/21/17 05:59 05:59 05:59 Intake Total 2010 1220 300 Balance 2010 1220 300 - Time Spent With Patient Time Spent With Patient: Greater than 35 minutes floor time today, including more than 50% of time in coordination of care during staffing, and counseling patient. Physical Exam - Physical Exam General Appearance: WD/WN, alert, no apparent distress Respiratory: normal breath sounds, No crackles, No rhonchi, No wheezing Skin: normal color, warm/dry Neuro/Psych: alert, normal mood/affect, oriented x 3, other (In OT doing hand dexterity exercises, with slow ataxic movements.) ICD10 Worksheet Patient Problems: Problems Problem Status Onset Altered mental status Acute Fall Acute Multiple sclerosis Acute Weakness Acute
[2017-05-20] MEDS: IBUPROFEN 600 MG TAB PO PRN (14:08)
[2017-05-20] MEDS: BISACODYL 10 MG SUPP PR PRN (16:25)
[2017-05-20] MEDS: LIDOCAINE 5% 1 EA PATCH TD SCH (21:14)
[2017-05-20] MEDS: traZODone 100 MG TAB PO PRN (21:16)
[2017-05-20] MEDS: MELATONIN 3 MG TAB PO SCH (21:17)
[2017-05-21] MEDS: traZODone 100 MG TAB PO SCH (03:18)
[2017-05-21] MEDS: BACLOFEN 20 MG TAB PO SCH ×5 (06:39→21:19)
[2017-05-21] MEDS: CHOLECALCIFEROL VIT D3 2,000 UNITS TAB/CAP PO SCH (08:43)
[2017-05-21] MEDS: CALCIUM CARBONATE 500 MG TAB PO SCH (08:43)
[2017-05-21] MEDS: ENOXAPARIN 40 MG/0.4 ML SYR SC SCH (08:44)
[2017-05-21] MEDS: DIVALPROEX ER 250 MG TAB PO SCH ×2 (08:44→21:19)
[2017-05-21] MEDS: POLYETHYLENE GLYCOL 3350 17 GM PKT PO SCH (08:47)
[2017-05-21] MEDS: SENNOSIDES 1 TAB PO SCH ×2 (08:47→21:20)
[2017-05-21] MEDS: PATCH REMOVAL 1 EA PATCH TD SCH (09:00)
[2017-05-21] MEDS: oxyCODONE CR 15 MG TAB PO SCH ×3 (09:01→22:17)
[2017-05-21] MEDS: ALPHA LIPOIC ACID PO SCH (09:02)
[2017-05-21] MEDS ORDERED: traZODone 100 MG TAB PO SCH (11:44)
--- NOTE | 2017-05-21 13:44 | SOAPPROG ---
SOAP Progress Note Assessment/Plan: Assessment: 66 yo F with chronic progressive MS since 1987, hospitalized with weakness and AMS, 3rd time in 4 mo, due to UTI vs overuse of sedating medications: * Debility in a patient with chronic progressive multiple sclerosis. Initial FIM 58 pm 05/10/17, improved to 82 on 05/14/17; to 90 as of 05/20/17. Decreased endurance and posture progressively flexed as she walks. S for t'fers. S/set- up UB dressing, min A UB. Poor carry-over of techniques, Continue physical and occupational therapy to optimize mobility and activities of daily living. * Cognitive impairment related to multiple sclerosis. Did well on formal testing but also noted to be disorganized. Not receptive to EXPENDITURE REQUISITION CLERK;. Plan for [facility] to take over medication management. * Spasticity and chronic pain. Improved with strengthening and stretching per PT & OT. Continue oxyCR, baclofen, and the lidocaine patch. Restarted tizanidine at 4 mg QHS; per her request, change to 0230 starting 05/16/17 and administer if awake. D/C gabapentin at her request 05/20/17. Observe for over- sedation and for adequacy of pain control. * R knee DJD. Orthopedic surgeon did not do right knee injection at appointment on May 10, as he didn't think it would help. * Request for supplements. Ordered calcium & Vit D. Alpha-lipoic acid and biotin are not on formulary; she'll have to have them brought in. * History of nancy, for which she is treated with divalproex. She was not toxic on this medication, and it will be continued. Additionally, she has trazodone and clonazepam prescribed. Again, she will be observed for over- sedation, and medications may be adjusted. Consider assistance of psychiatry. * Recent urinary tract infection per her report with pyuria but a negative urine culture in the hospital. She will be observed for any return of symptoms. * Risk for deep venous deep venous thrombosis. She was discharged from the hospital on enoxaparin, and this will be continued until her mobility improves. Will not continue upon discharge. * History of unintentional medication overdoses. Medication management will be done by the assisted living. Will return to [facility] and have home care versus outpatient services. Discharge . 05/21/17 13:40 Subjective: No complaints. Working on walking with PT. Objective: Vital Signs Temp Pulse Resp BP Pulse Ox 97.4 C H 60 16 84/61 L 92 05/21/17 06:37 05/21/17 06:37 05/21/17 06:37 05/21/17 06:37 05/21/17 06:37 05/20/17 05/21/17 05/22/17 05:59 05:59 05:59 Intake Total 1220 600 870 Balance 1220 600 870 Physical Exam - Physical Exam General Appearance: WD/WN, alert, no apparent distress Respiratory: No respiratory distress, No accessory muscle use Skin: normal color, warm/dry Neuro/Psych: alert, normal mood/affect, oriented x 3, abnormal gait (slow, flexed posture, with B trekking poles, step-through pattern with longer step on R. Cueing assist for motor planning.) ICD10 Worksheet Patient Problems: Problems Problem Status Onset Altered mental status Acute Fall Acute Multiple sclerosis Acute Weakness Acute
[2017-05-21] MEDS: MELATONIN 3 MG TAB PO SCH (21:20)
[2017-05-21] MEDS: LIDOCAINE 5% 1 EA PATCH TD SCH (21:20)
[2017-05-21] MEDS: traZODone 100 MG TAB PO PRN (22:17)
[2017-05-22] MEDS: BACLOFEN 20 MG TAB PO SCH ×4 (06:34→17:03)
[2017-05-22 06:40] VITALS: TEMP 97.9
[2017-05-22] MEDS: oxyCODONE CR 15 MG TAB PO SCH ×2 (08:23→15:07)
[2017-05-22] MEDS: DIVALPROEX ER 250 MG TAB PO SCH (08:23)
[2017-05-22] MEDS: CHOLECALCIFEROL VIT D3 2,000 UNITS TAB/CAP PO SCH (08:23)
[2017-05-22] MEDS: CALCIUM CARBONATE 500 MG TAB PO SCH (08:23)
[2017-05-22] MEDS: ALPHA LIPOIC ACID PO SCH (08:23)
[2017-05-22] MEDS: SENNOSIDES 1 TAB PO SCH (08:24)
[2017-05-22] MEDS: POLYETHYLENE GLYCOL 3350 17 GM PKT PO SCH (08:24)
[2017-05-22] MEDS: PATCH REMOVAL 1 EA PATCH TD SCH (08:25)
--- NOTE | 2017-05-22 10:45 | PDOREHIP ---
Admission [facility] - Admission - 3 Day Assessment Period Admission Date/Day 1: 05/08/17 Day 2: 05/09/17 Day 3: 05/10/17 Discharge [facility] - Discharge - 3 Day Assessment Period 2 Days Prior to Anticipated Discharge Date: 05/20/17 1 Day Prior to Anticipated Discharge Date: 05/21/17 Anticipated Discharge Date: 05/22/17 - Discharge Skin Conditions Unhealed Pressure Ulcer (1 or more/Stage 1 or >)-Discharge: 0. No
--- NOTE | 2017-05-22 12:14 | GDS ---
[f rep st] DISCHARGE SUMMARY ADMITTING DIAGNOSIS: Multiple sclerosis with acute debility due to urinary tract infection versus medication overdose. DISCHARGE DIAGNOSIS: Multiple sclerosis with acute debility due to urinary tract infection versus medication overdose. CONSULTATIONS: None. PROCEDURES: None. COMPLICATIONS: None. HISTORY AND HOSPITAL COURSE: The patient was admitted from [facility]. She had presented there on 05/06/2017 with weakness and debility. This was her 3rd admission in 4 months for similar presentation each time. It was suspected that she may have unintentionally overdosed on sedating medications. Sedating medications were initially held and she had some improvement. Then they were resumed at home doses. She was able to participate in therapies and was transferred to inpatient rehabilitation. She made steady progress. Her initial functional independence measure was 58 on 05/10/2017, which is consistent with needing assistance in most of her activities of daily living and mobility at the [facility] level. She improved to 82 on 05/14/2017 and to 90 on 05/20/2017. These are both consistent with assisted living level of function. She was noted to have decreased endurance but this improved. She had posture that progressively became more flexed as she walked. She required supervision for transfers. She was noted to have poor carryover of techniques. Posture and forward gaze improved though she needed intermittent feedback for sequencing and weight shift. She was, however, able to ambulate 100 feet with standby assist and wheelchair follow and carryover of techniques regarding gait and mobility were noted to be improved. Regarding activities of daily living, she required cues for self setup for memory. For instance, she would forget to gather her underwear but gather multiple pairs of socks instead. Regarding cognitive function, she did very well on tests administered by speech and language pathology; however, she was noted to have decreased memory and follow-through, per PT and OT. She was not cooperative with speech and language pathology and the sessions were discontinued. PHYSICAL EXAM ON THE DAY OF DISCHARGE: VITAL SIGNS: Blood pressure is 116/59, heart rate is 57, respiratory rate is 15, oxygen saturation is 93% on room air, temperature is 36.6 degrees centigrade. GENERAL: This is a well-nourished, well-developed woman who appears her chronologic age, sitting in a wheelchair, cooperative and in no acute distress. HEART: There is regular rate and rhythm with no murmurs, rubs, or gallops. LUNGS: Clear to auscultation bilaterally. ABDOMEN: Soft, nontender, nondistended with normoactive bowel sounds. EXTREMITIES: There is no cyanosis, clubbing, or edema. NEUROLOGIC: She is alert and oriented x3. She has a somewhat flat affect. She has weakness bilaterally in the upper extremities. Gait was not observed today. LABORATORY STUDIES: During her stay, there were no lab tests done. DISCHARGE PLAN: Condition upon discharge is good. ACTIVITY: Ad boni. She is likely to use a wheelchair for longer distances but was able to ambulate in the room. DIET: Regular. DATE OF NEXT APPOINTMENT: She will follow up with primary care provider, Dr. Syd Marquez, in 1-2 weeks. MEDICATIONS AT DISCHARGE: 1. Calcium carbonate 1000 mg p.o. daily. 2. Cholecalciferol 5000 units daily. 3. Ibuprofen 600 mg q.6 hours p.r.n. 4. Melatonin 3 mg at bedtime. 5. Senna 1-2 tablets b.i.d. 6. Tizanidine 4 mg at 0230 if she is awake and feeling muscle spasms. 7. Trazodone 100 mg p.o. at bedtime. 8. Lidoderm 2 patches daily. 9. Acetaminophen 650 mg q.4 hours p.r.n. 10. Docusate 100 mg b.i.d. 11. Polyethylene glycol 17 g daily. 12. Baclofen 40 mg 5 times a day. 13. Clonazepam 0.5 mg at bedtime p.r.n. ISSUES TO BE ADDRESSED AT FOLLOWUP: 1. Functional status. She will continue to have physical and occupational therapies and can follow up with her primary care provider regarding how these are going. 2. Spasticity and chronic pain. She has been stable. She has not been using tizanidine as she is sleeping through the night. She can follow up regarding these issues with her primary care provider. 3. History of unintentional medication overdoses. Medication management will be taken over by the assisted living facility. /[id number]/MODL MTDD
[2017-05-22 14:24] LABS: COLOR YELLOW; LEUKOCYTE ESTERASE,URINE 1+ (NEGATIVE); NITRITE,URINE NEGATIVE (NEGATIVE)
[2017-05-22 14:32] LABS: BACTERIA TRACE /hpf (NONE SEEN); MUCUS TRACE /lpf (NONE-1+)
[2017-05-22 18:44] VITALS: BP 121/67; PULSE 77; RESP 19; O2SAT 91
== END 2017-05-22 20:00 | disposition home or self-care (01) | DRG 945 ==
LOC: BREH 15:00
PROVIDERS: ADMIT Internal Medicine; ATTEND Internal Medicine
DX: R53.81 Other malaise (principal); G35 Multiple sclerosis; R41.89 Other symptoms and signs involving cognitive functions and awareness; G89.29 Other chronic pain; F11.20 Opioid dependence, uncomplicated; Z87.440 Personal history of urinary (tract) infections; M17.11 Unilateral primary osteoarthritis, right knee; K05.10 Chronic gingivitis, plaque induced
CPT/HCPCS: 92507-GN; 92522-GN; 97110-GO; 97110-GP; 97112-GO; 97112-GP; 97116-GP; 97162-GP; 97166-GO; 97530-GO; 97530-GP; 97535-GO; J1650

== ENCOUNTER 2017-05-28 14:30 | Observation (INO) | payer OTHER, MEDICARE ==
--- NOTE | 2017-05-28 15:11 | EDPHY ---
HPI/HX/ROS/PE/MDM Narrative: CHIEF COMPLAINT: Fall, head trauma HPI: This patient is a wheelchair-bound 66-year-old female with history of multiple sclerosis referred to the Emergency Department from Urgent Care for further evaluation of head trauma secondary to a fall yesterday. She reports that she slipped out of her wheelchair, hitting her forehead on the floor. She presents with a forehead hematoma and healing abrasion. She denies headache, nausea, vision changes, or additional complaints. She reports that she was diagnosed with a UTI yesterday; she is not currently taking antibiotics. REVIEW OF SYSTEMS: Aside from elements discussed in the HPI, a comprehensive 10-point review of systems was reviewed and is negative. PMH: Multiple sclerosis, chronic pain. SOCIAL HISTORY: Lives at [facility]; caregiver at bedside. PHYSICAL EXAM: General:Patient is alert, in no acute distress. Head; Hematoma measuring 5cm in diameter to the forehead with overlying superficial abrasion. ENT:Eyes are normal to inspection. ENT inspection normal. Neck: Normal inspection. Full range of motion. Respiratory:No respiratory distress. Breath sounds normal bilaterally. Cardiovascular: Regular rate and rhythm. Strong peripheral pulses. Normal cap refill. Abdomen:The abdomen is nontender to palpation. There are no peritoneal signs. There are normal bowel sounds. Back: Normal to inspection. No tenderness to palpation. Skin: Normal color. No rash. Warm and dry. Extremities: Normal appearance. Full range of motion. Neuro: Oriented x3. Motor and sensory function at baseline. ED Course: 66-year-old female wheelchair-bound with history of MS presents with a 5cm hematoma and overlying abrasion to the forehead obtained when she reportedly slipped out of her wheelchair yesterday. She denies additional complaints. There are no additional injuries. No acute neurological abnormalities on exam. She does report a recent diagnosis of UTI at her living facility; it is unclear if this is confirmed as she was not placed on antibiotics. Will proceed with UA to confirm. Plan also for CT imaging of the head given the evident trauma on exam. 1534: The patient's rehabilitation physician has arrived at bedside. He reports that the patient's brother is concerned that her neurological deficits appear to be rapidly progressing and believes that she is unsafe in current living facility. 1545: CT of the head is non-acute as reported to me by Dr. Wiggins, radiology. Imaging does reveal evidence of prior surgery. Rehab physician states that the patients appears similar to previous apart from apparent dehydration. He feels comfortable with her being discharged home. He discussed care instructions and precautions with the patient's caregiver at bedside. IV established. 1L IV NS administered. Labs reviewed and are unremarkable. 1717: The patient's brother called and reports that the [facility] is unwilling to accept the patient back until nighttime care is arranged, which he has not been able to arrange as of yet. He requests admission for fall prevention as he arranges follow-up. Catheter placed to obtain UA. Pending UA results. 1750: Consultation with Dr. Peraza, hospitalist, who accepts admission. UA is negative for UTI. - Data Points Imaging Results: Imaging Impressions Head CT 05/28/17 15:09 Impression: 1. No acute hemorrhage, hydrocephalus or mass effect. 2. Multiple sclerosis demyelinating plaques. 3. Prior right frontal bur hole and linear ventricular catheter tract encephalomalacia. 4. No sinusitis. 5. No acute skull fracture. Findings and recommendations discussed with Emergency Department physician, Fidencio Sigala MD at 1545 hour, 05/28/2017. Final report concurs with initial preliminary interpretation. Imaging: Discussed imaging studies w/ body recall instructor Radiologist Laboratory Results: Laboratory Results 05/28/17 16:12 05/28/17 16:12 05/28/17 05/28/17 05/28/17 17:30 16:12 16:12 WBC 4.68 10^3/uL 10^3/uL (3.80-9.50) RBC 4.15 10^6/uL L 10^6/uL (4.18-5.33) Hgb 12.5 g/dL L g/dL (12.6-16.3) Hct 37.9 % L % (38.0-47.0) MCV 91.3 fL fL (81.5-99.8) MCH 30.1 pg pg (27.9-34.1) MCHC 33.0 g/dL g/dL (32.4-36.7) RDW 16.5 % H % (11.5-15.2) Plt Count 135 10^3/uL L 10^3/uL (150-400) MPV 13.0 fL H fL (8.7-11.7) Neut % (Auto) 66.9 % % (39.3-74.2) Lymph % (Auto) 15.6 % % (15.0-45.0) [place] % (Auto) 15.6 % H % (4.5-13.0) Eos % (Auto) 1.5 % % (0.6-7.6) Baso % (Auto) 0.2 % L % (0.3-1.7) Nucleat RBC Rel Count 0.0 % % (0.0-0.2) Absolute Neuts (auto) 3.13 10^3/uL 10^3/uL (1.70-6.50) Absolute Lymphs (auto) 0.73 10^3/uL L 10^3/uL (1.00-3.00) Absolute Monos (auto) 0.73 10^3/uL 10^3/uL (0.30-0.80) Absolute Eos (auto) 0.07 10^3/uL 10^3/uL (0.03-0.40) Absolute Basos (auto) 0.01 10^3/uL L 10^3/uL (0.02-0.10) Absolute Nucleated RBC 0.00 10^3/uL 10^3/uL (0-0.01) Immature Gran % 0.2 % % (0.0-1.1) Immature Gran # 0.01 10^3/uL 10^3/uL (0.00-0.10) Sodium 133 mEq/L L mEq/L (134-144) Potassium 4.2 mEq/L mEq/L (3.5-5.2) Chloride 98 mEq/L mEq/L (97-110) Carbon Dioxide 27 mEq/l mEq/l (22-31) Anion Gap 8 mEq/L mEq/L (8-16) BUN 14 mg/dL mg/dL (7-23) Creatinine 0.5 mg/dL L mg/dL (0.6-1.0) Estimated GFR > 60 Glucose 81 mg/dL mg/dL (70-100) Calcium 9.8 mg/dL mg/dL (8.5-10.4) Specimen Hemolysis 133 Urine Color YELLOW Urine Appearance CLEAR Urine pH 6.0 (5.0-7.5) Ur Specific [place] 1.008 (1.002-1.030) Urine Protein NEGATIVE (NEGATIVE) Urine Ketones 1+ H (NEGATIVE) Urine Blood NEGATIVE (NEGATIVE) Urine Nitrate NEGATIVE (NEGATIVE) Urine Bilirubin NEGATIVE (NEGATIVE) Urine Urobilinogen NEGATIVE EU EU (0.2-1.0) Ur Leukocyte Esterase NEGATIVE (NEGATIVE) Urine Glucose NEGATIVE (NEGATIVE) Medications Given: Discontinued Medications Sodium Chloride (Ns) 1,000 mls @ 0 mls/hr IV ONCE ONE; Wide Open PRN Reason: Protocol Stop: 05/28/17 15:46 Last Admin: 05/28/17 16:09 Dose: 1,000 mls General Initial Vital Signs: Initial Vital Signs Temperature (C) 36.4 C 05/28/17 14:35 Heart Rate 71 05/28/17 14:35 Respiratory Rate 16 05/28/17 14:35 Blood Pressure 143/98 H 05/28/17 14:35 O2 Sat (%) 90 L 05/28/17 14:35 Allergies/Adverse Reactions: No Known Allergies Allergy (Verified 03/14/17 01:57) Departure - Departure Disposition: [facility] Inpatient Acute Clinical Impression: Dehydration, Multiple sclerosis Closed head injury Qualifiers: Encounter type: initial encounter Qualified Code(s): S09.90XA - Unspecified injury of head, initial encounter Altered mental status Qualifiers: Altered mental status type: disorientation Qualified Code(s): R41.0 - Disorientation, unspecified Condition: Fair Report Scribed for: Fidencio Sigala Report Scribed by: Brittny Cross Date of Report: 05/28/17 Time of Report: 15:06 Physician Review and Approval Statement: Portions of this note were transcribed by an ED scribe. I personally performed the history, physical exam, and medical decision making; and confirm the accuracy of the information in the transcribed note.
[2017-05-28] MEDS ORDERED: NS 1,000 ML IV ONE (15:45)
[2017-05-28 16:22] LABS: % IMMATURE GRANULYOCYTES 0.2 % (0.0-1.1); ABSOLUTE IMMATURE GRANULOCYTES 0.01 10^3/uL (0.00-0.10); ADD DIFF? NO; ADD MORPH? NO; ADD SCAN? NO; ATYPICAL LYMPHOCYTE FLAG 10 (0-99); FRAGMENT RBC FLAG 20 (0-99); HEMATOCRIT 37.9 % (38.0-47.0); HEMOGLOBIN 12.5 g/dL (12.6-16.3); LEFT SHIFT FLG 0 (0-99); LIPEMIA HEMOLYSIS FLAG 80 (0-99); MEAN CELL HEMOGLOBIN 30.1 pg (27.9-34.1); MEAN CELL VOLUME 91.3 fL (81.5-99.8); PLATELET CLUMPS FLAG 0 (0-99); PLATELET COUNT 135 10^3/uL (150-400); RED BLOOD CELL COUNT 4.15 10^6/uL (4.18-5.33); RED CELL DISTRIBUTION WIDTH 16.5 % (11.5-15.2)
[2017-05-28 16:44] LABS: ANION GAP 8 mEq/L (8-16); CALCIUM 9.8 mg/dL (8.5-10.4); CARBON DIOXIDE 27 mEq/l (22-31); CHLORIDE 98 mEq/L (97-110); CREATININE 0.5 mg/dL (0.6-1.0); GLOMERULAR FILTRATION RATE > 60; GLUCOSE 81 mg/dL (70-100); POTASSIUM 4.2 mEq/L (3.5-5.2); SODIUM 133 mEq/L (134-144); SPECIMEN HEMOLYSIS 133
[2017-05-28 17:52] LABS: COLOR YELLOW; LEUKOCYTE ESTERASE,URINE NEGATIVE (NEGATIVE); NITRITE,URINE NEGATIVE (NEGATIVE)
[2017-05-28] MEDS ORDERED: ONDANSETRON DISINTEGRATING 4 MG TAB PO PRN (18:21)
[2017-05-28] MEDS ORDERED: ACETAMINOPHEN 325 MG TAB PO PRN (18:21)
[2017-05-28] MEDS ORDERED: ONDANSETRON 4 MG/2 ML VIAL IVP PRN (18:21)
[2017-05-28] MEDS ORDERED: DOCUSATE SODIUM 100 MG CAP PO PRN (18:31)
[2017-05-28] MEDS ORDERED: POLYETHYLENE GLYCOL 3350 17 GM PKT PO PRN (18:31)
[2017-05-28] MEDS ORDERED: SENNOSIDES 1 TAB PO PRN ×2 (18:31→18:38)
[2017-05-28] MEDS ORDERED: clonazePAM 0.5 MG TAB PO PRN (18:31)
[2017-05-28] MEDS ORDERED: IBUPROFEN 600 MG TAB PO PRN (18:31)
--- NOTE | 2017-05-28 18:48 | GHP ---
[f rep st] HISTORY AND PHYSICAL DATE OF ADMISSION: 05/28/2017 CHIEF COMPLAINT: Fall. HISTORY OF PRESENT ILLNESS: This is a 66-year-old female with a history of multiple sclerosis, mult [facility] admissions this year, just discharged from rehab 1 week ago, presents with a fall. She fell ou t of her wheelchair, hit her forehead. There was no loss of consciousness. There was no prodrome o r syncopal episode precipitating the fall. She has had a mild headache, as well as a small abrasion on her forehead since. She was thus sent into the ED for further evaluation. She was just discharged from rehab 1 week ago. She says that she is doing well, has increased the l evel of care at home. Her brother called and spoke with the nurse, who conveyed his concern that kristi becker may be having a multiple sclerosis exacerbation. He says that her functional status has worsened recently. PAST MEDICAL/SURGICAL HISTORY: 1. Multiple sclerosis. 2. Chronic pain, on continuous narcotics. 3. Possible medication overdose in the past. MEDICATIONS: Please see medication reconciliation. ALLERGIES: None. SOCIAL HISTORY: She lives at the [facility]. FAMILY HISTORY: Reviewed and noncontributory. REVIEW OF SYSTEMS: Ten-point review of systems was conducted and is negative, except per HPI. PHYSICAL EXAM: VITAL SIGNS: Blood pressure 144/64, heart rate 78, respiration rate 14, saturating 95% on room air, temperature 36.6. GENERAL: The patient is a pleasant female who appears somewhat distant, but in no acute distress. HEENT: Shows her to have an abrasion on her forehead. There is some surrounding ecchymosis. Cardiovascular: Exam shows a regular rate and rhythm. No murmurs, r ubs, or gallops. PULMONARY: Shows her not to be in any respiratory distress. Lungs are clear to a uscultation bilaterally. ABDOMEN: Soft, nontender, nondistended. SKIN: No rash. : Exam shows no Van. NEUROLOGIC: Exam shows her to be alert and oriented x3. Cranial nerves 2-12 are intact. Motor is intact, but diminished in the upper extremities. She is weaker in her lower extremities, maybe 2/5. PSYCHIATRIC: Exam shows her to have a mildly depressed affect. DATA: 1. I discussed with Dr. Sigala. Will admit to med/surg. 2. I reviewed her head CT. This shows nothing acute. It does show multiple sclerosis. IMPRESSION AND PLAN: A 66-year-old female with multiple sclerosis, presents with a fall. 1. Fall: This is mechanical. Per her brother, he is concerned that this may represent multiple sc lerosis exacerbation. There is also some concern that she may not have enough care at her home at [facility] [place], operated by [facility]. Will triage her to med/surg. No precipitating infections have been identified to expl ain worsening of her condition. I placed a Neurology consult. Will have Case Management, PT, OT wo rk with her to see what would be her optimal level of care. 2. Multiple sclerosis: Neurology consult as above. 3. Chronic pain: We will continue her home medications. 4. Venous thromboembolism risk is moderate to high, though she is obs. I will not start her on pha rmacologic prophylaxis at this time. /[id number]/MODL
[2017-05-28] MEDS ORDERED: traZODone 100 MG TAB PO SCH (21:00)
[2017-05-28] MEDS: BACLOFEN 20 MG TAB PO SCH (21:08)
[2017-05-28] MEDS: oxyCODONE CR 15 MG TAB PO SCH (21:09)
[2017-05-28] MEDS ORDERED: oxyCODONE IR 15 MG TAB PO SCH (22:00)
[2017-05-28 23:06] VITALS: RESP 15
[2017-05-29] MEDS: BACLOFEN 20 MG TAB PO SCH ×3 (05:32→16:14)
[2017-05-29 05:37] VITALS: BP 124/73; PULSE 85; TEMP 98.1; O2SAT 95
[2017-05-29] MEDS ORDERED: CHOLECALCIFEROL VIT D3 1,000 UNITS TAB PO SCH (09:00)
[2017-05-29] MEDS ORDERED: DIVALPROEX ER 250 MG TAB PO SCH (09:00)
--- NOTE | 2017-05-29 09:14 | PDCONSULT ---
[employer] Note: HOSPITAL NEUROLOGY CONSULT REQUESTING: Drew Peraza MD REASON: multiple sclerosis HPI: This is a 66 year old woman with a history of multiple sclerosis. She is wheelchair bound and also has a background of narcotic dependence with multiple admissions for narcotic overdose. She was recently admitted to our facility 05/05 - 05/08 for lethargy related to narcotics. She was discharged to inpatient rehab. She left rehab on 05/22 and has been home since. She reports global weakness since then without any focality. Specifically, she has no new acute/ subacute focal weakness, sensory loss, vision change. She was cooking dinner in her kitchen yesterday and went to push herself up from her wheelchair and she slipped out of her chair, striking her head. She was brought to our ED yesterday for the head injury. CT head wo was unremarkable for any acute intracranial bleed. She was subsequently admitted because her living facility would not be able to provide overnight care for her. The hospitalist has consulted the neurology service out of concern for MS exacerbation with her global weakness and deconditioning. She was evaluated by the inpatient rehab team in the ED, who reported her to be in the same state she was at discharge from rehab. She is on high intensity immunosuppression with Lemtrada, having failed multiple disease modifying therapies. She is followed at [facility] and has an appointment with them this week. ROS: As per the HPI, otherwise a complete 12 point ROS was performed and is negative ALLERGIES AND MEDS: As recorded in the EMR - reviewed and reconciled PFSH: As per the intake H&P by Dr. Peraza from yesterday EXAM: VS reviewed in EMR GEN: thin, chronically ill appearing woman laying in bed with ice pack on brow HEENT: she will not let me remove the ice pack from her head for inspection, sclera anicteric, conjunctiva not injected, MMM, oropharynx clear NECK: supple, nontender, no meningismus CV: RRR s1 s2 wo m/r/c/g. Carotid pulses 2+ wo bruit NEURO: MS: she is a bit sedate/somnolent. She is oriented. Speech nondysarthric. No language disturbance. Follows commands. Attends to both sides. Recent/remote memory grossly intact. Mood depressed. Adequate fund of knowledge. Psychomotor slowing. CN: pupils 4mm round and reactive. No APD. Intolerant of fundoscopy. VFF. Primary gaze centered. Full ocular motility. No HERVE. Facial sensation preserved. Face symmetric. Hearing grossly intact to finger rub. Palatoglossal movements intact. Shoulder shrug and head turn strong. MOTOR: reduced bulk throughout. Lower tone in the BLEs. No adventitial movements. LLE with UMN pattern weakness at 3/5, RLE with UMN pattern weakness at 4+/5, BUE 5/5. SENSORY: intact to PP/LT throughout. No extinction. COORD: no gross ataxia. Ifeoma labored in hands. REFLEX: plantars up. No clonus. DTRS 3-/4. GAIT: unable to assess - chronically wheelchair bound DATA REVIEW: Labs reviewed in EMR IMPRESSION AND RECOMMENDATIONS: // MULTIPLE SCLEROSIS - NO ACUTE EXACERBATION // DECONDITIONING - GLOBAL WEAKNESS Patient with a sense of global weakness without any focal/abrupt/acute/subacute changes in her neurologic function. Suspect deconditioning +/- the effects of psychoactive/sedating medications. No role for any acute intervention or any other neurologic intervention in the acute care setting. Discussion of her prognosis and possibility of secondary progressive disease would be best done with her longitudinal care providers at [facility]. No further recommendations.
[2017-05-29] MEDS: oxyCODONE CR 15 MG TAB PO SCH ×2 (09:43→16:14)
--- NOTE | 2017-05-29 10:43 | HOSPPROG ---
Hospitalist Progress Note Assessment/Plan: Patient is a 66-year-old female with a history multiple sclerosis. She is discharged from rehabilitation approximately a week ago. She presented to the emergency room with a fall. She fell getting out of her wheelchair and hit her forehead. No loss of consciousness. Today is my 1st encounter with the patient. reviewed the neurologist consultation. * mechanical fall Not related to MS exacerbation She may need more care at her home in the [facility] Will await further input from physical therapy and occupational therapy head CT shows nothing acute * MS further follow up with [facility] * chronic pain on continuous opioids This possibly could be contributing to her gait instability *Hyponatremia mild *Plan: PT and OT to see/ has 24 hour care at the [facility]/ they have requested she have an BRAID MAKER in addition/ her brother is working on this Subjective: Ana M has no complaints. Objective: Vital Signs Temp Pulse Resp BP Pulse Ox 36.7 C 85 15 124/73 H 95 05/29/17 04:00 05/29/17 04:00 05/29/17 04:00 05/29/17 04:00 05/29/17 04:00 05/28/17 05/29/17 05/30/17 05:59 05:59 05:59 Intake Total 1100 Output Total 50 Balance 1050 - Physical Exam Constitutional: no apparent distress, other (slender) Eyes: PERRL Ears, Nose, Mouth, Throat: hearing normal Cardiovascular: regular rate and rhythym Respiratory: no respiratory distress Gastrointestinal: normoactive bowel sounds Skin: warm Neurologic: AAOx3 Psychiatric: flat affect (distant in her interactions) ICD10 Worksheet Patient Problems: Problems Problem Status Onset Altered mental status Acute Closed head injury Acute Dehydration Acute Multiple sclerosis Acute Altered mental status Acute Fall Acute Multiple sclerosis Acute Weakness Acute
[2017-05-29] MEDS ORDERED: NS 250 ML IV ONE (14:00)
--- NOTE | 2017-05-29 14:25 | GDS ---
[f rep st] DISCHARGE SUMMARY DISCHARGE DIAGNOSES: 1. Mechanical fall. 2. Multiple sclerosis. 3. Chronic pain on continuous opiates. 4. Hyponatremia. CONSULTATION: During her stay, Dr. German Hein with Neurology Services. HISTORY OF PRESENT ILLNESS: Briefly, the patient is a 66-year-old female with a history of MS. She was recently discharged from rehabilitation approximately a week ago. While she was at the [facility], she had a fall out of her wheelchair and hit her forehead. She had no loss of consciousness. She was seen and evaluated by the neurologist, who does not believe that she has any type of MS exacerbation. Recommendation is for her to get further followup at the [facility]. HOSPITAL COURSE: 1. Mechanical fall. She was seen and evaluated by PT and OT. They are recommending 24 hour care, which she does have at home. A CT of her head was performed that showed nothing acute. The patient told me that she fell when her care provider was not there, and is aware that she needs help. 2. MS, further follow up with [facility]. 3. Chronic pain, on continuous opioids. This could possibly be contributing to her gait instability. 4. Hyponatremia, this is mild. Sodium is 133. PENDING LABS AND TESTS: None. CONDITION AT DISCHARGE: Stable. VITAL SIGNS: Blood pressure is 124/73, heart rate is 85, respiratory rate is 15 , temperature is 36.7 Celsius, O2 sat on room air 95%. MEDICATIONS AT DISCHARGE: Please see the EMR. DISCHARGE INSTRUCTIONS: 1. To have someone with her at all times. 2. To get further followup at [facility]. /[id number]/MODL MTDD
== END 2017-05-29 17:05 ==
LOC: F3N 18:29
PROVIDERS: ADMIT Student in an Organized Health Care Education/Training Program; ATTEND Internal Medicine
DX: S00.83XA Contusion of other part of head, initial encounter (principal); S00.81XA Abrasion of other part of head, initial encounter; G35 Multiple sclerosis; E87.1 Hypo-osmolality and hyponatremia; R41.82 Altered mental status, unspecified; W05.0XXA Fall from non-moving wheelchair, initial encounter; G89.29 Other chronic pain; F11.20 Opioid dependence, uncomplicated
CPT/HCPCS: 70450; 96360; 97162; 97166; 99285; G0378; G8978; G8979; G8987; G8988

== ENCOUNTER → 2017-08-14 | Outpatient (CLI) | payer OTHER, MEDICARE | LOC: FIMAGING 14:20 | PROVIDERS: ATTEND Midwife | DX: Z12.31 Encounter for screening mammogram for malignant neoplasm of breast (principal); M85.80 Other specified disorders of bone density and structure, unspecified site | CPT/HCPCS: G0202 ==

== ENCOUNTER → 2017-09-11 | Outpatient (CLI) | payer OTHER, MEDICARE | LOC: FIMAGING 10:14 | PROVIDERS: ATTEND Midwife | DX: Z12.39 Encounter for other screening for malignant neoplasm of breast (principal); N63.10 Unspecified lump in the right breast, unspecified quadrant | CPT/HCPCS: 76641; G0206 ==

== ENCOUNTER → 2017-09-13 | Outpatient (CLI) | payer OTHER, MEDICARE | LOC: FIMAGING 07:18 | PROVIDERS: ATTEND Internal Medicine | DX: R10.11 Right upper quadrant pain (principal); N26.1 Atrophy of kidney (terminal) ==

== ENCOUNTER → 2017-09-16 | Outpatient (CLI) | payer OTHER, MEDICARE ==
[~2017-09-16] MED LIST: BUPIVACAINE 0.5% 10 ML SDV ONE; LIDOCAINE 1% 300 MG/30 ML SDV ONE; THROMBIN (BOVINE) 5,000 UNIT VIAL TP ONE
== END ==
LOC: FIMAGING 07:17
PROVIDERS: ATTEND Midwife
PROC: 0HBT3ZX Excision of Right Breast, Percutaneous Approach, Diagnostic (ICD-10-PCS; principal; 2017-09-16)
DX: C50.811 Malignant neoplasm of overlapping sites of right female breast (principal)
CPT/HCPCS: 19083; G0206

== ENCOUNTER → 2017-09-18 | Outpatient (CLI) | payer OTHER, MEDICARE ==
--- NOTE | 2017-09-18 11:37 | NOWCEV ---
[facility]IC EVALUATION AND LETTER OF JUSTIFICATION Patient Name: CT CARLISLE Physician: MD Justine Jimenez Date: 09/18/17 Therapist: Tiffanie Pendleton PT,MSPT Date of : 1950 MR#: [id number] Contact: Ct Carlisle Subscriber: CT CARLISLE Primary Ins: MEDICARE OUTPATIENT Subscriber #: [id number] EVALUATION FINDINGS Medical history - Ct is a 66y/o female (5' 4", 110lbs), with secondary progressive multiple sclerosis (MS). She was initially dx in 1987. Since that time, she has had a progressive decline in function, especially in the past year. She recently had a baclofen pump placed for spasticity management. She also has to take Percocet for pain she experiences in her L midback and scapula. She reports the pain is 9/10 at worst, and typically a 7/10. She was referred to this clinic by her doctor to have recommendation made for the most medically appropriate PWC to allow Ct to remain independent within her home as her MS progresses. Functional Mobility - Ct's mobility is severely limited by her MS. In the home she typically self propels a light weight MWC with B LEs to access MRADLs. This is challenging due to significant hamstring weakness. She is unable to propel with her UEs due to her L back and scapular pain. She reports significant difficulty self propelling household distances on days where her MS symptoms are exacerbated. Some days she reports only being able to self propel her MWC 20' prior to fatigue. She is able to ambulate very short distances at a slow pace with B trekking poles. She is not able to use a walker as her UEs fatigue too quickly to assist with her trunk control when walking. She completed the TUG in 1min and 23sec (>14sec indicated an increased fall risk) indicating that she is not a functional ambulator. Her gait with B trekking pole is characterized by a flexed posture placing significant pressure through her poles for postural control, B knee flexion throughout stance phase of gait, and intermittent catching of her L toe, with a very slow speed. She is not able to carry any objects when walking, and walking causes an increase in her L sided back pain. She reports that she has had falls. To complete transfers, Ct pushes the backs of her legs against her wheelchair to stabilize her balance. She leans forward and grabs the chair arm rests of the surface she is transferring to, then pivots to a sitting position on the adjacent surface. She I independent with bed mob, although it takes increased time to complete sit to/from supine transitions. Motor involvement - [place] L side is impacted more greatly by the MS than her R side. Her L side has greater spasticity than her R, despite use of a baclofen pump. On the Modified Sudheer Scale (MAS) She has 2+ extensor tone in her LLE, and 1 in her L hip internal rotators and adductors. She also has 1 tone in her R internal rotators and adductors. LE MMT is as follows: DF L: 3-/5 , R: 3+/5, knee extension: 4-/5 B with difficulty with TKE performing SLR, hip flexion L: 2+/5, R: 3-/5, knee flexion: 3-/5 B, hip abduction: 2-/5 B, shoulder flexion and abduction 4-/5 B with fatiguable weakness, so strength decreases with repeated testing. All testing of her L UE causes a significant increase in pain in her L scapula and midback. On days where Beth MS is exacerbated and she has increased fatigue, and strength is declined from testing noted above. Her shoulder ROM is 100deg into flexion and abduction B, but all overhead movements cause increased L scapular pain. She also has tightness in B adductors. [place]ot[place] balance is also impacted by her MS. She has has ineffective ankle and hip reactions and an absent stepping reaction in response to minimal challenges. Posture - Ct has a posterior pelvic tilt with a pelvic obliquity where her R iliac crest is lower than her R. She has a flexible L sided scoliotic convexity with a L rib hump and her L shoulder is elevated more than her R. Her R shoulder is more rounded than her L. She reports that her scoliosis has progressed with the progression of her MS. Skin Sensation - [place] sensation is diminished on her L side compared to her R. She does not have any history of skin breakdown and is continent of bowel and bladder. Endurance - Ct has severely impaired endurance due to her secondary progressive MS. She reports that she frequently has difficulty self propelling her MWC distances between rooms in her home to access ADLs, due to her severe fatigue. ADLs - Ct is modified independent with ADLs such as dressing and bathing from a seated level. She does have difficulty accessing areas in her home ( such as traveling distances between the bedroom, bathroom, and kitchen) with use of her MWC due to her MS which causes extreme fatigue, weakness and resultant pain from compensation. She is able to stand at the counter for short periods of time from her wheelchair in the kitchen to perform basic meal prep, but her standing tolerance is limited, and some days she is unable due to her fatigue. Additionally she is unable to walk and carry anything in the kitchen to complete tasks. Cognitive/Social - Ct lives alone in a fully accessible apartment. 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 She has assistance for housecleaning, and frequently orders meals in so she does not have to perform meal prep. Current wheelchair - Ct is currently utilizing a light weight MWC (Ergo 105, [employer]), which she purchased out of pocket 2 years ago. The chair is no longer meeting her needs as it is too difficult for her to self propel the distances to access the bedroom, bathroom and kitchen on a consistent basis due to the progression of her MS. With use of his chair, Ct will be unable to maintain an independent lifestyle within her home. MEDICAL and FUNCTIONAL NEED/OBJECTIVES * To procure a custom PWC and seating system to provide Ct with safe and consistent access to her home without exacerbating her MS, and to allow her to retain her independence with MRADLs. PRIMARY FUNCTIONAL LIMITATION (G Code) * Mobility CURRENT STATUS OF PRIMARY FUNCTIONAL LIMITATION (Severity Modifier) * At least 40 percent but less than 60 percent impaired, limited or restricted ( CK) GOAL STATUS OF PRIMARY FUNCTIONAL LIMITATION (Severity Modifier) * At least 40 percent but less than 60 percent impaired, limited or restricted ( CK) DISCHARGE STATUS OF PRIMARY FUNCTIONAL LIMITATION (Severity Modifier) * At least 40 percent but less than 60 percent impaired, limited or restricted ( CK) EQUIPMENT RECOMMENDATIONS AND JUSTIFICATIONS The following recommendations are believed to be the most cost effective way to meet the patients medical and functional needs. * Group 3 power base (Quickie pulse): Needed to provide Ct with safe, independent, and consistent access to MRADLs within her home currently and as her MS progresses. Ct cannot functionally ambulate distances in her home between the bedroom, bathroom and kitchen necessary to complete MRADL, even with use of an AD such as a walker, cane, or trekking poles due to severe weakness, balance impairments, pain and limited endurance from her MS (see above for details). Ct is not able to consistently self propel her current light weight wheelchair distances between rooms in her home due to her poor hamstrings strength and extensor tone, making her unable to propel with her LEs , and pain that can approach a 9/10 in her L scapula and midback when she propels with her UEs. Additionally, propelling with her UEs causes severe fatigue, so she can frequently only self propel 20' distance (distances between rooms in her home are greater than this) prior to fatigue from her MS and having to rest. This limits her ability to perform ADLs independently and in a timely manner and exacerbates her MS symptoms. An ultra light weight MWC would not be appropriate as Ct would experience similar issues with self propulsion as she experiences in her light weight chair. Additionally, utilization of a MWC, even an ultra light weight model would not be sustainable for Ct as her MS progresses. A custom PWC will allow Ct to independently access MRADLs within her home without exacerbating her MS or provoking pain which would require use of Percocet when it increases from self propulsion. Additionally, the Quickie Pulse is expandable, so her seating can be modified as her MS progresses in the future. This will allow Ct to maintain a her independence and continue living alone without assistance, even as her MS progresses. Ct will be able to safely and independently perform transfers to /from her PWC. * Skin protection position cushion: Needed to accommodate for Ct's significant postural asymmetries and to prevent them from progressing further. A seating system optimized to accommodate for Ct's postural asymmetries will also manage her midback and scapular pain by providing her with the appropriate postural support, and prevent her from having to rely on Percocet for pain management. An off the shelf cushion would not be able to correct for/ accommodate Ct's pelvic obliquity, and would allow for further progression of her pathologic curvature. * Posterior positioning backrest with mild contour: Needed to work in conjunction with Ct's custom seat cushion to accommodate for her significant postural asymmetries and to prevent them from progressing further. A seating system optimized to accommodate for Ct's postural asymmetries will also manage her midback and scapular pain by providing her with the appropriate postural support, and prevent her from having to rely on Percocet for pain management. An off the shelf backrest would not be able to correct for/ accommodate Ct's pelvic obliquity and scoliosis, and would allow for further progression of her pathologic curvature. * Height adjustable arm rests: The elevated height is needed to allow Ct to safely and independently complete transfers, as she requires the increased height to allow her to hold onto her arm rest to complete stand pivot transfers. * Swing away joystick: Needed sot that the joystick can be pushed out of the way to allow Ct to pull her chair closely up to surfaces to complete ADLs from a wheelchair level. Allowing her to pull more closely up to surfaces will decreased the amount Ct has to reach which exacerbates her L back pain. Also needed to that the joystick can be pushed out of the way so that is does no interfere with transfers. These recommendations are based on the likelihood that Ct will require the use of a power wheelchair for mobility for the rest of her life within her home due to her progressing MS. If you have any questions or concerns regarding the stated recommendations, please feel free to contact the therapist at . Thank you for your cooperation in obtaining the necessary equipment for this patient. YESSY Ordoñez
== END ==
PROVIDERS: ATTEND Internal Medicine
DX: G35 Multiple sclerosis (principal); Z99.3 Dependence on wheelchair
CPT/HCPCS: 97162; G8978; G8979; G8980

== ENCOUNTER → 2017-09-27 | Outpatient (CLI) | payer OTHER, MEDICARE ==
[~2017-09-27] MED LIST changes: -BUPIVACAINE 0.5% 10 ML SDV ONE; +GADOBUTROL 10 ML VIAL IVP ONE; -LIDOCAINE 1% 300 MG/30 ML SDV ONE; -THROMBIN (BOVINE) 5,000 UNIT VIAL TP ONE
== END ==
LOC: FIMAGING 11:51
PROVIDERS: ATTEND Surgery
DX: C50.111 Malignant neoplasm of central portion of right female breast (principal); Z01.818 Encounter for other preprocedural examination
CPT/HCPCS: 0159T; 74000; A9585; C8908

== ENCOUNTER → 2017-10-08 | Outpatient (CLI) | payer OTHER, MEDICARE | LOC: FIMAGING 15:29 | DX: G35 Multiple sclerosis (principal); G93.89 Other specified disorders of brain; Z85.3 Personal history of malignant neoplasm of breast ==

== ENCOUNTER → 2017-12-17 | Outpatient (CLI) | payer OTHER, MEDICARE | LOC: FIMAGING 09:24 | PROVIDERS: ATTEND Internal Medicine Endocrinology, Diabetes & Metabolism | DX: E05.90 Thyrotoxicosis, unspecified without thyrotoxic crisis or storm (principal) | CPT/HCPCS: 78014; A9516 ==

== ENCOUNTER 2018-05-12 08:59 | Day surgery (SDC) | payer OTHER, MEDICARE ==
[2018-05-12] MEDS ORDERED: LIDOCAINE 1% 2 ML INJ ID PRN (09:12)
[2018-05-12] MEDS ORDERED: LR 1,000 ML IV ONE (09:12)
[2018-05-12] MEDS ORDERED: LIDOCAINE 1% 300 MG/30 ML SDV ONE (09:19)
[2018-05-12] MEDS ORDERED: BUPIVACAINE 0.25% 30 ML SDV ONE (09:19)
--- NOTE | 2018-05-12 10:52 | PDANEPAE ---
ANE History of Present Illness abdominal hernia here for repair ANE Past Medical History - Cardiovascular History Hx Hypertension: No Hx Arrhythmias: No Hx Chest Pain: No Hx Coronary Artery / Peripheral Vascular Disease: No Hx CHF / Valvular Disease: No Hx Palpitations: No - Pulmonary History Hx COPD: No Hx Asthma/Reactive Airway Disease: No Hx Recent Upper Respiratory Infection: No Hx Oxygen in Use at Home: No Hx Sleep Apnea: No Sleep Apnea Screening Result - Last Documented: Negative - Neurologic History Hx Cerebrovascular Accident: No Hx Seizures: No Hx Dementia: No - Endocrine History Hx Diabetes: No Endocrine History Comment: ON METHIMAZOLE FOR HYPERTHYROID- SEES ENDOCRINOLOGIS. - Renal History Hx Renal Disorders: No Renal History Comment: UTI'S IN - NONE NOW. - Liver History Hx Hepatic Disorders: No - Neurological & Psychiatric Hx Hx Neurological and Psychiatric Disorders: Yes Neurological / Psychiatric History Comment: MS SINCE - DOING WELL. 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 IMPLANTED BACLOFEN PUMP INTO L ABD. R BREAST LUMPECTOMY ANE Review of Systems Review of Systems: - Exercise capacity METS (RN): 4 METS ANE Patient History - Allergies Allergies/Adverse Reactions: No Known Allergies Allergy (Verified 05/12/18 09:50) - Home Medications Home Medications: Acetaminophen [Tylenol 325mg (*)] 325 mg PO Q6 PRN 05/28/17 [Last Taken Unknown] Calcium Carbonate [Calcium] 1,200 mg PO DAILY 05/28/17 [Last Taken 05/27/17] Cholecalciferol Vit D3 [Vitamin D3 (*)] 5,000 units PO DAILY 05/28/17 [Last Taken 05/27/17] Divalproex ER [Depakote ER 250 MG (*)] 250 mg PO DAILY 05/28/17 [Last Taken 10/19] Ibuprofen [Motrin (*)] 600 mg PO Q6H PRN 05/28/17 [Last Taken Unknown] Multivitamins [Multivitamin (*)] 1 each PO DAILY 05/28/17 [Last Taken Unknown] Polyethylene Glycol 3350 [Miralax 17 gm (*)] 17 gm PO DAILY PRN 05/28/17 [Last Taken Unknown] traZODone [traZODONE 100MG (*)] 100 - 200 mg PO HS 05/28/17 [Last Taken 05/27/17 ] ALPHA LIPOIC ACID 05/06/18 [Last Taken Unknown] Exenanstane 05/06/18 [Last Taken Unknown] Methimazole 05/06/18 [Last Taken 05/12/18] Ms Contin 05/06/18 [Last Taken 05/12/18 15 MG] - NPO status NPO Status: no food or drink >8 hours NPO Since - Liquids (Date): 05/12/18 NPO Since - Liquids (Time): 07:30 NPO Since - Solids (Date): 05/12/18 NPO Since - Solids (Time): 07:30 - Anes Hx Anes Hx: no prior problems - Smoking Hx Smoking Status: Former smoker - Alcohol Use Alcohol Use: None - Family Anes Hx Family Anes Hx: none ANE Labs/Vital Signs - Vital Signs Blood Pressure: 119/55 Heart Rate: 64 Respiratory Rate: 17 O2 Sat (%): 93 Height: 162.56 cm Weight: 49.895 kg ANE Physical Exam - Airway Neck exam: FROM Mallampati Score: Class 2 Mouth exam: normal dental/mouth exam - Pulmonary Pulmonary: no respiratory distress, clear to auscultation - Cardiovascular Cardiovascular: regular rate and rhythym, no murmur, rub, or gallop - ASA Status ASA Status: III ANE Anesthesia Plan Anesthesia Plan: GA with mask
--- NOTE | 2018-05-12 10:53 | PDHPUP ---
History & Physical Update H&P update statement: This history and physical update is based on an assessment of the patient which was completed after admission or registration (within 24 hours), but prior to the surgery/procedure. H&P update: H&P reviewed & patient examined, no change in patient's condition since H&P completed
--- NOTE | 2018-05-12 10:54 | POSTOPPROG ---
Post Op Note Date of Operation: 05/12/18 Surgeon: Christ Guerrero Electrochemist: Georgie Carbajal PA-C Anesthesia: IV Sedation Pre-op Diagnosis: umbilical herniaand epigastric hernia Post-op Diagnosis: same Procedure: open primary repair of hernia x2 Findings: incarcerated epigastric Inf/Abcess present in the surg proc area at time of surgery?: No EBL: Minimal Specimen(s): none
[2018-05-12] MEDS ORDERED: fentaNYL 100 MCG/2 ML INJ ONE (10:56)
[2018-05-12] MEDS ORDERED: PROPOFOL/EMULSION 500 MG/50 ML BOTTLE IV ONE (10:56)
[2018-05-12] MEDS ORDERED: PHENYLEPHRINE HCL 100 MCG/ML SYR ONE (11:09)
--- NOTE | 2018-05-12 11:40 | POSTANESTH ---
Post Anesthetic Evaluation Cardiovascular Status: Normal, Stable, Similar to Pre-Op Cond Respiratory Status: Normal, Stable, Similar to Pre-op Cond. Level of Consciousness/Mental Status: Can Participate in Eval, Alert and Oriented Pain Control: Adequate, Prn Tx Ordered Nausea/Vomiting Control: Adequate, Prn Tx Ordered Complications Possibly Related to Anesthesia: None Noted
[2018-05-12] MEDS ORDERED: HYDROmorphONE/DILAUDID 1 MG/ML INJ IVP PRN (11:41)
[2018-05-12] MEDS ORDERED: HYDROCODONE/APAP 5/325 TAB PO PRN (11:41)
[2018-05-12] MEDS ORDERED: fentaNYL 100 MCG/2 ML INJ IVP PRN (11:41)
[2018-05-12] MEDS ORDERED: ONDANSETRON 4 MG/2 ML VIAL IVP PRN (11:41)
[2018-05-12] MEDS ORDERED: ACETAMINOPHEN 500 MG TAB PO PRN (11:41)
[2018-05-12] MEDS ORDERED: oxyCODONE IR 5 MG TAB PO PRN (11:41)
[2018-05-12] MEDS ORDERED: NALOXONE HCL 0.4 MG/ML INJ IVP PRN (11:41)
--- NOTE | 2018-05-12 11:52 | GOP ---
[f rep st] OPERATIVE REPORT DATE OF OPERATION: 05/12/2018 SURGEON: Christ Guerrero MD CHEMICAL PLANT WORKER: Georgie Carbajal P.A.-C. The use of an visitor services assistant is standard and required for the safety. ANESTHESIA: IV general anesthetic was used. ANESTHESIOLOGIST: Eagle Moss MD. PREOPERATIVE DIAGNOSIS: Umbilical hernia. POSTOPERATIVE DIAGNOSIS: Both epigastric and umbilical hernia, separate by 2 cm. PROCEDURE PERFORMED: Primary hernia repairs of umbilical and epigastric. FINDINGS: SPECIMENS: None. ESTIMATED BLOOD LOSS: Less than 5 mL. INDICATIONS: A 67-year-old patient who has a history of umbilical mass. Ultrasound and CT scan perf ormed showed possible epigastric and umbilical hernia. DESCRIPTION OF PROCEDURE: Patient was brought to the operating room. After induction of IV sedation , her abdomen was prepped with chlorhexidine and draped sterilely. Time-out procedure was then perfo rmed according to institutional standards. Local anesthetic was infused in skin and subcutaneous tis sues and a time-out procedure was performed according to institutional standards. Local anesthetic w as infused in skin and subcutaneous tissues and a vertical midline incision was made. This was deepe shabnam with electrocautery. The underlying epigastric hernia was initially identified, brought in the f ield of dissection and circumferentially dissected out. A 0.5 mm defect was noted with an incarcerate d piece of omental fat. This was not able to be reduced through the defect, even though circumferent ial dissection was performed. It was then amputated after ensuring there was no underlying bowel. T he vessels were controlled with 2-0 Vicryl and this was reduced into the abdominal cavity. The fasci a was ensured to be cleared circumferentially before putting a figure of 8 of 0 Ethibond into the def ect. Umbilical hernia is noted 2 cm distal to this. This is brought in the field of dissection and the hernia is identified underneath the stalk. This is ligated and then the hernia is repaired using 2-0 Ethibond suture, also figure of 8 suture. The umbilicus was then tacked back down to the fascia . The space is reapproximated with 3-0 Vicryl and the skin was reapproximated with 4-0 Monocryl . Dermabond was applied. Patient awakened. Needle, instrument and sponge counts were verified to b e correct before she was taken to recovery room in stable condition. No immediate complications. COMPLICATIONS: There were no complications. /[id number]/MODL
[2018-05-12 13:35] VITALS: BP 109/75
== END 2018-05-12 13:30 | disposition home or self-care (01) ==
LOC: FSGY 08:59
PROVIDERS: ATTEND Surgery
PROC: 0WQF0ZZ Repair Abdominal Wall, Open Approach (ICD-10-PCS; principal; 2018-05-12 10:30)
DX: K43.6 Other and unspecified ventral hernia with obstruction, without gangrene (principal); K42.9 Umbilical hernia without obstruction or gangrene
CPT/HCPCS: J2370; J2704; J3010

== ENCOUNTER → 2018-06-12 | Outpatient (CLI) | payer OTHER, MEDICARE | LOC: FIMAGING 10:15 | PROVIDERS: ATTEND Internal Medicine Hematology & Oncology | DX: Z08 Encounter for follow-up examination after completed treatment for malignant neoplasm (principal); Z85.3 Personal history of malignant neoplasm of breast ==

== ENCOUNTER → 2018-07-24 | Outpatient (CLI) | payer OTHER, MEDICARE | LOC: FIMAGING 15:35 | PROVIDERS: ATTEND Neurological Surgery | DX: M51.37 Other intervertebral disc degeneration, lumbosacral region (principal); M53.87 Other specified dorsopathies, lumbosacral region; M43.17 Spondylolisthesis, lumbosacral region; M48.07 Spinal stenosis, lumbosacral region ==

== ENCOUNTER → 2018-08-07 | Outpatient (CLI) | payer OTHER, MEDICARE | LOC: FIMAGING 12:52 | DX: G35 Multiple sclerosis (principal) ==

== ENCOUNTER → 2018-08-20 | Outpatient (CLI) | payer OTHER, MEDICARE | LOC: FIMAGING 12:01 | PROVIDERS: ATTEND Physician Assistant Surgical | DX: M41.86 Other forms of scoliosis, lumbar region (principal); M43.16 Spondylolisthesis, lumbar region; M47.897 Other spondylosis, lumbosacral region ==

== ENCOUNTER 2018-09-07 17:45 | Emergency (ER) | payer OTHER, MEDICARE ==
[2018-09-07 17:58] VITALS: BP 117/62
--- NOTE | 2018-09-07 18:25 | EDPHY ---
General - History Smoking Status: Former smoker Time Seen by Provider: 09/07/18 18:21 Narrative: CHIEF COMPLAINT: Fell and elevator, cut my chin HISTORY OF PRESENT ILLNESS: Patient presents by private vehicle by herself with complaints of fall and chin injury. She states that was in an elevator when she turned her back to the doors, and the door struck her back. She says she was thrown forward, landing on her chin in the elevator. She struck her chin only. She has no loss of consciousness or headache. No dental pain. No difficulty opening closing her mouth. She does have a laceration on her chin. Bleeding stopped with pressure. No nausea or vomiting. No visual disturbance but no neck pain. No chest, back or abdominal pain. She has no concerns other than wanting the laceration repaired. No other associated complaints or modifying factors TIME OF INJURY: Less than 1 hr ago TETANUS STATUS: Up-to-date MEDICAL/SURGICAL/SOCIAL HISTORY: Bipolar disorder, multiple sclerosis. Nonsmoker. 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 Conversing in full sentences. Ambulatory with her hiking poles. Head: normocephalic, atraumatic. No Stock sign or raccoon eyes. No depression deformity. Chin laceration as below ENT: Pupils equal round reactive. EOMs symmetric and painless. Airway is widely patent without trismus. Neck: Supple nontender. Cardiovascular: Pulses normal throughout, good signs of perfusion distally. Neurological: GCS 15. A&O, sensory symmetric, strength symmetric Skin: Warm and dry, no rash. 3 cm stellate laceration on the chin, submental. There is no exposure of the mentalus muscle. There is no foreign body or pulsatile bleeding. Extremities: Nontender, no pedal edema DIFFERENTIAL DIAGNOSES: Including but not limited to laceration, complex laceration, laceration with muscular injury, laceration with mandibular injury, laceration foreign body MDM: 6:20 p.m. Laceration of the chin with no signs of intracranial abnormality. Low mechanism of injury. She is awake and alert. Laughing and joking. I have anesthetize the wound. We will irrigate and re-explored the wound. 7:00 p.m. Chin laceration has been repaired. There was 1 cm excisional debridement on a skin island that was nonviable. Excellent approximation of wound borders. We discussed wound care at length. We discussed returning here in 5-7 days for suture removal. I have answered all her questions. She is laughing and well- appearing. Discharged home stable condition. PROCEDURE: Laceration repair Consent: Verbal Location: Chin, Submental Length of repair: 3 cm Complexity: Complex Layer involvement: Single Anesthesia: Local. 1% lidocaine with epinephrine, 5 mL Irrigation: Extensive Debridement: 1 cm Procedure description: Following good anesthesia, the wound was copiously irrigated. Wound bed was explored with a sterile glove, and there is no foreign body noted. 1 cm excisional debridement performed on skin island nonviable. Wound borders were approximated well with good hemostasis. Tolerated well without complication. Suture/Staple material: 6-0 Prolene, 5 simple interrupted sutures Wound care: Routine as discussed Suture/Staple removal: 5-7 Days SUPERVISION: This patient was independently evaluated without direct involvement of or examination by the attending physician. ED Precautions: Worsening pain. Erythema, edema, cyanosis, pallor, paresthesia or anesthesia. (Aries Lewis) Discussion: The patient was evaluated and managed by the Physician Line Maintenance Supervisor. My co- signature indicates that I have reviewed this chart and I agree with the findings and plan of care as documented. I am the secondary supervising physician. (Monica Hernandez) - Objective Vital Signs: Initial Vital Signs Temperature (C) 36.8 C 09/07/18 17:54 Heart Rate 67 09/07/18 17:54 Respiratory Rate 16 09/07/18 17:54 Blood Pressure 117/62 09/07/18 17:54 O2 Sat (%) 95 09/07/18 17:54 O2 Delivery Mode Room Air Allergies/Adverse Reactions: No Known Allergies Allergy (Verified 05/12/18 09:50) Home Medications: Medication Instructions Recorded Acetaminophen [Tylenol 325mg (*)] 325 mg PO Q6 PRN 05/28/17 Calcium Carbonate [Calcium] 1,200 mg PO DAILY 05/28/17 Cholecalciferol Vit D3 [Vitamin D3 5,000 units PO DAILY 05/28/17 (*)] Divalproex ER [Depakote ER 250 MG 250 mg PO DAILY 05/28/17 (*)] Ibuprofen [Motrin (*)] 600 mg PO Q6H PRN 05/28/17 Multivitamins [Multivitamin (*)] 1 each PO DAILY 05/28/17 Polyethylene Glycol 3350 [Miralax 17 gm PO DAILY PRN 05/28/17 17 gm (*)] traZODone [traZODONE 100MG (*)] 100 - 200 mg PO HS 05/28/17 ALPHA LIPOIC ACID 05/06/18 Exenanstane 05/06/18 Methimazole 05/06/18 Ms Contin 05/06/18 Medications Given: Discontinued Medications Diphtheria/Tetanus/Acell Pertussis (Boostrix) 0.5 ml IM .ONCE ONE Stop: 09/07/18 19:15 Last Admin: 09/07/18 19:25 Dose: 0.5 ml Departure - Departure Disposition: Home, Routine, Self-Care Clinical Impression: Laceration of chin without complication Fall Qualifiers: Encounter type: initial encounter Qualified Code(s): W19.XXXA - Unspecified fall, initial encounter Condition: Good Instructions: Diphtheria/Acellular Pertussis/Tetanus Booster Vaccine (By injection), Care For Your Stitches (ED), Laceration (ED) Additional Instructions: 1. Thin layer of bacitracin once daily 2. Keep the wound covered while showering for the next 2 days. Keep the wound covered every day until the sutures come out. 3. Daily wound care as discussed 4. Return here for suture removal in 5-7 days 5. Return here for signs of infection as discussed including warmth, redness, fever, drainage from the site 6. return here for increasing pain surrounding the laceration 7. Do not submerge the wound in any water, hot tub, swimming pool until sutures removed 8. Do not apply any chemicals, etl informatica developer or lotions to the wound other than bacitracin, Neosporin or some water 9. After removal of sutures. You may use [id number] remedies such as Mederma for minimizing your scar. Do not use these until the sutures are removed. Referrals: Meme Murillo MD [Primary Care Provider] - As per Instructions Physician,Emergency DeptMD [Medical Doctor] - As per Instructions (5-7 days for suture removal)
[2018-09-07] MEDS ORDERED: TDAP ADULT 0.5 ML INJ (BOOSTRIX) IM ONE (19:14)
== END 2018-09-07 20:01 | disposition home or self-care (01) ==
PROC: 0HQ1XZZ Repair Face Skin, External Approach (ICD-10-PCS; principal; 2018-09-07)
DX: S01.81XA Laceration without foreign body of other part of head, initial encounter (principal); Z23 Encounter for immunization; W22.8XXA Striking against or struck by other objects, initial encounter; Y92.89 Other specified places as the place of occurrence of the external cause; Y93.9 Activity, unspecified; Y99.9 Unspecified external cause status

== ENCOUNTER → 2018-10-31 | Outpatient (CLI) | payer OTHER, MEDICARE | LOC: BMCIMAGING 13:19 | PROVIDERS: ATTEND Internal Medicine Hematology & Oncology | DX: Z12.31 Encounter for screening mammogram for malignant neoplasm of breast (principal); Z85.3 Personal history of malignant neoplasm of breast ==

== ENCOUNTER → 2018-11-20 | Outpatient (CLI) | payer OTHER, MEDICARE | LOC: BMCIMAGING 14:10 | PROVIDERS: ATTEND Internal Medicine Hematology & Oncology | DX: Z13.820 Encounter for screening for osteoporosis (principal); M85.89 Other specified disorders of bone density and structure, multiple sites; Z78.0 Asymptomatic menopausal state; Z79.899 Other long term (current) drug therapy ==

== ENCOUNTER → 2019-02-12 | Outpatient (CLI) | payer OTHER, MEDICARE | LOC: FIMAGING 14:54 | DX: M43.8X4 Other specified deforming dorsopathies, thoracic region (principal); M51.34 Other intervertebral disc degeneration, thoracic region; M48.04 Spinal stenosis, thoracic region ==

== ENCOUNTER → 2019-02-27 | Outpatient (CLI) | payer OTHER, MEDICARE | LOC: BMCIMAGING 14:23 | PROVIDERS: ATTEND Orthopaedic Surgery Hand Surgery | DX: M25.561 Pain in right knee (principal); M25.511 Pain in right shoulder; M25.512 Pain in left shoulder ==

== ENCOUNTER → 2019-04-22 | Outpatient (CLI) | payer OTHER, MEDICARE | LOC: FIMAGING 07:38 | DX: M51.16 Intervertebral disc disorders with radiculopathy, lumbar region (principal); M48.061 Spinal stenosis, lumbar region without neurogenic claudication; M41.9 Scoliosis, unspecified; M25.78 Osteophyte, vertebrae; M43.16 Spondylolisthesis, lumbar region ==

== ENCOUNTER → 2019-05-26 | Outpatient (CLI) | payer OTHER, MEDICARE | LOC: BMCIMAGING 12:29 ==

== ENCOUNTER → 2019-05-29 | Outpatient (CLI) | payer OTHER, MEDICARE | LOC: FIMAGING 14:15 ==